=== PATIENT | female | born 1990 | race Two or more races ===

== ENCOUNTER 2020-10-16 08:03 | Outpatient (REF) | payer OTHER, SELFPAY | END 2020-10-16 08:04 | disposition home or self-care (01) | LOC: HO.LAB 08:03 | PROVIDERS: Visit Provider Internal Medicine | DX: Z20.822 Contact with and (suspected) exposure to COVID-19 (principal) | CPT/HCPCS: 36415; C9803; U0003 ==

== ENCOUNTER 2021-09-17 02:40 | Emergency (ER) | payer OTHER, SELFPAY ==
--- NOTE | 2021-09-17 | ECG_ITS ---
Test Reason : SOB/CHEST PAIN Blood Pressure : / mmHG Vent. Rate : 074 BPM Atrial Rate : 074 BPM P-R Int : 156 ms QRS Dur : 082 ms QT Int : 384 ms P-R-T Axes : 066 068 030 degrees QTc Int : 426 ms Normal sinus rhythm with sinus arrhythmia Normal ECG When compared with ECG of 29-JUL-2016 04:22, No significant change was found Referred By: Generic ED Physician Electronically Signed By:Casey Gross
--- NOTE | ~2021-09-17 | XR_ITS ---
EXAMINATION: XR CHEST CLINICAL INFORMATION: Shortness of breath COMPARISON: None TECHNIQUE: Frontal view of the chest was obtained. FINDINGS: No significant abnormality is noted involving the heart, lungs, mediastinum, bony thorax or soft tissues. XR/XR chest 1V IMPRESSION: Unremarkable examination.
[2021-09-17 02:55] VITALS: BP 122/70; PULSE 78; RESP 20; TEMP 36.4; O2SAT 100; BMI 29.9
[2021-09-17 03:12] LABS: COVID-19 Test Negative (Negative)
--- NOTE | 2021-09-17 03:44 | ED_ITS ---
HPI - URI/Sore Throat General Chief Complaint: Upper Respiratory Symptoms Stated Complaint: sob, chest pain Time Seen by Provider: 09/17/21 03:35 Source: patient Mode of arrival: ambulatory Limitations: no limitations History of Present Illness HPI Narrative: Patient comes to the emergency room complaining of chronic stuffy nose/congestion. Patient states that when she breathes, her lungs burn. Patient does not have any sharp pains, no chest pain. Patient states that she has tried for several months Sudafed, Flonase, multiple decongestants, allergy shots. Related Data Allergies Allergy/AdvReac Type Severity Reaction Status Date / Time penicillin V Allergy Unknown hives Verified 10/29/18 00:00 seasonal allergies Allergy Unknown Unknown Uncoded 09/17/21 02:52 Review of Systems Review of Systems: Constitutional : No Weight loss, No Fever, No Chills, No Night Sweats, No Fatigue, No Malaise ENT/Mouth : No Hearing loss, No Ear Pain, complaining of nasal congestion, sinus pressure, hoarse voice for several months Eyes: No Eye Pain, No Swelling, No Redness, No Foreign Body, No Discharge, No Vision Changes Cardiovascular : No Chest Pain, No SOB, No Dyspnea on Exertion, No Orthopnea, No Edema, No Palpitations Respiratory : No Cough, No Sputum, No Wheezing, No Smoke Exposure, No Dyspnea Gastrointestinal : No Nausea, No Vomiting, No Diarrhea, No Constipation, No abdominal Pain, No Hematochezia, No Melena Genitourinary : no irregular bleeding, No Dysuria, No Urinary Frequency, No Hematuria, No Urinary Incontinence, No Urgency, No Flank Pain, No Urinary Flow Changes, No Hesitancy Musculoskeletal : No joint pain, No Myalgias, No Joint Swelling Skin : No Skin Lesions, No rash Neuro : No Weakness, No Numbness, No Paresthesias, No Loss of Consciousness, No Dizziness, No Headache Psych : No Anxiety/Panic, No Depression, No SI/HI/AH/VH, No Social Issues, Heme/Lymph: No Bruising, No Bleeding,No Lymphadenopathy Endocrine : No Polyuria, No Polydipsia, No Temperature Intolerance [facility] Social History Social History Advance Directives: No Advance Directives Information Provided: Yes Patient : No Physical Exam Vital Signs: Vital Signs: Last Vital Signs Temp 97.6 F 09/17/21 02:55 Pulse 78 09/17/21 02:55 Resp 20 09/17/21 02:55 BP 122/70 09/17/21 02:55 Pulse Ox 100 09/17/21 02:55 BMI result Body Mass Index 29.9 Const: Other: Appearance: Alert. Oriented X3. No acute distress. Eyes: Pupils equal, round and reactive to light. ENT: Pharynx normal. Neck: Normal inspection. Neck supple. No lymph nodes noted. No crepitus CVS: Normal heart rate and rhythm. Pulses normal. Normal S1 and S2 Respiratory: No respiratory distress. Breath sounds normal. No Wheezing. No rales Abdomen: Soft and nontender. No rigidity. No distention. good BS x4 Skin: Skin warm and dry. Normal skin color. Normal skin turgor. Extremities: No lower extremity edema. No lower extremity edema. No Lacerations. No Rash Neuro: Oriented X 3. No motor deficit. No sensory deficit. Moving all extermities. No slurred speech. Course Course Course Narrative: I discussed the physical exam with the patient, patient does have congestion, mild sinus pressure. Lungs sound clear. X-ray is negative and COVID test is negative. Patient likely has an acute viral infection on top of her chronic symptoms. At this time, antibiotic not indicated. MDM - URI/Sore Throat Lab Data Labs: Lab Results 09/17/21 Range/Units 02:53 COVID-19 ([facility]) Negative (Negative) COVID-19 Clin Com See Note Imaging Data Chest x-ray: Radiologist's impression: COMPARISON: None TECHNIQUE: Frontal view of the chest was obtained. FINDINGS: No significant abnormality is noted involving the heart, lungs, mediastinum, bony thorax or soft tissues. XR/XR chest 1V IMPRESSION: Unremarkable examination. Discharge Plan Discharge Clinical Impression: Upper respiratory infection Patient Disposition: Home, Self-Care Instructions: Viral Syndrome (ED), Upper Respiratory Infection (ED) Additional Instructions: Please follow-up with your primary care physician tomorrow. If you have any worsening or new symptoms, please return to the emergency room or call 911 Stand Alone Forms: Work/School Release
== END 2021-09-17 04:04 | disposition home or self-care (01) ==
PROVIDERS: Emergency Provider Emergency Medicine; PCP Internal Medicine
DX: J06.9 Acute upper respiratory infection, unspecified (principal); Z20.822 Contact with and (suspected) exposure to COVID-19
CPT/HCPCS: 36415; 71045; 87635; 93005; 99283

== ENCOUNTER 2022-04-23 09:35 | Outpatient (REF) | payer OTHER, SELFPAY ==
[2022-04-23 10:09] LABS: Basophils Percent Auto 0.6 % (0-2); Eosinophils Absolute Auto 0.2 X10*3/uL (0.0-0.4); Eosinophils Percent Auto 4.4 % (0-4); Hematocrit 40.3 % (37.0-47.0); Imm Gran Abs Auto 0.02 X10*3/uL (0.00-0.03); Imm Gran Pct Auto 0.4 % (0.0-0.4); Lymphocytes Absolute Auto 1.3 X10*3/uL (1.2-4.9); Lymphocytes Percent Auto 26.7 % (20-40); MANUAL DIFF FLAG SCAN; Mean Corpuscular HGB Conc 32.3 g/dl (31.0-35.0); Mean Corpuscular Hemoglobin 28.4 pg (27.0-33.0); Mean Corpuscular Volume 88.2 fL (80.0-98.0); Mean Platelet Volume 9.8 fL (9.4-12.3); Monocytes Absolute Auto 0.3 X10*3/uL (0.1-1.2); Monocytes Percent Auto 5.2 % (2-11); Neutrophils Absolute Auto 3.2 x10*3/uL (2.0-8.3); Neutrophils Percent Auto 62.7 % (45-73); Platelet Count 263 X10*3/uL (160-400); Red Blood Count 4.57 X10*6/uL (4.20-5.50); Red Cell Distribution Width 14.1 % (11.0-16.0); SCAN SMEAR FLAG 1
[2022-04-23 10:26] LABS: SLIDE REVIEW VERIFIED
[2022-04-23 10:46] LABS: Alanine Aminotransferase 15 U/L (0-31); Albumin Level 4.6 g/dL (3.5-5.0); Alkaline Phosphatase 52 U/L (39-117); Anion Gap 10 (12-20); Aspartate Amino Transferase 14 U/L (5-31); Bilirubin Total 0.4 mg/dL (0.0-1.0); Blood Urea Nitrogen 12 mg/dL (9-16); Calcium 9.2 mg/dL (8.4-10.2); Carbon Dioxide 26 mmol/L (22-29); Chloride 107 mmol/L (96-108); Cholesterol 254 mg/dL; Estimated Glomerular Filt Rate > 60; Glucose Random 86 mg/dL (60-115); HDL Cholesterol 73 mg/dL; LDL Cholesterol Calculated 168 mg/dl; Potassium 4.4 mmol/L (3.3-5.1); Rheumatoid Factor < 15.0 IU/mL (<15.0); Sodium 139 mmol/L (135-145); Total Protein 7.2 g/dL (6.5-8.0); Triglycerides 65 mg/dL
[2022-04-23 10:55] LABS: Erythrocyte Sedimentation Rate 4 MM/HR (0-20)
[2022-04-23 11:07] LABS: Thyroid Stimulating Hormone 0.96 uIU/mL (0.32-4.0)
[2022-04-25 18:12] LABS: Lyme Abs Screen <0.90 index
[2022-04-25 19:02] LABS: Cyclic Citrullinated Peptide <16 UNITS
[2022-04-26 14:22] LABS: Anti Nuclear Antibody Screen NEGATIVE (NEGATIVE)
== END 2022-04-23 09:36 | disposition home or self-care (01) ==
LOC: HO.LAB 09:35
PROVIDERS: PCP Internal Medicine; Visit Provider Internal Medicine
DX: Z00.00 Encounter for general adult medical examination without abnormal findings (principal); Z13.31 Encounter for screening for depression; M13.0 Polyarthritis, unspecified; M65.4 Radial styloid tenosynovitis [de Quervain]
CPT/HCPCS: 36415; 80053; 80061; 84443; 85025; 85652; 86038; 86039; 86200; 86431; 86617; 86618

== ENCOUNTER → 2022-07-16 14:52 | Outpatient (BNVA) | payer OTHER, SELFPAY | PROVIDERS: PCP Internal Medicine; Visit Provider Orthopaedic Surgery | DX: M65.4 Radial styloid tenosynovitis [de Quervain] (principal) | CPT/HCPCS: J1100 ==

== ENCOUNTER 2022-08-20 16:26 | Emergency (ER) | payer OTHER, SELFPAY ==
[2022-08-20 16:30] VITALS: RESP 24; BMI 30.9
[2022-08-20 16:35] VITALS: BP 92/57; PULSE 75; RESP 22; TEMP 35.8; O2SAT 100
--- NOTE | 2022-08-20 16:37 | ED_ITS ---
HPI - Extremity Injury (Upper) General Chief Complaint: Skin/Abscess/Foreign Body Stated Complaint: Finger lac Time Seen by Provider: 08/20/22 16:34 Source: patient Mode of arrival: ambulatory Limitations: no limitations History of Present Illness HPI narrative: 31 yo female right hand dominant here with laceration to left hand from cutting an advocado with a knife just [employer]. Tetanus status unknown. No numbness,tingling, weakness of the extremity. Patient feeling lightheaded and nausea/vomiting since injury. Related Data Home Medications Medication Instructions Recorded Confirmed triamcinolone acetonide 0.5 % 1 appl topical BID 05/28/22 topical cream ibuprofen 800 mg tablet 800 mg PO TID PRN pain 05/31/22 05/31/22 montelukast 10 mg tablet 10 mg PO DAILY 05/31/22 azelastine 137 mcg (0.1 %) nasal intranasal 07/16/22 spray aerosol Previous Rx's Medication Instructions Recorded ibuprofen 800 mg tablet 800 mg PO Q8H PRN pain #30 tabs 08/20/22 Allergies Allergy/AdvReac Type Severity Reaction Status Date / Time penicillin V Allergy Unknown hives Verified 07/16/22 15:41 amitriptyline AdvReac Intermediate Dizziness Unverified 07/16/22 15:41 amoxicillin AdvReac Intermediate Hives Unverified 07/16/22 15:41 topiramate [From Topamax] AdvReac Intermediate Confusion Unverified 07/16/22 15:41 seasonal allergies Allergy Unknown Unknown Uncoded 07/16/22 15:41 Review of Systems Review of Systems: Yes all other systems are reviewed and are negative Constitutional: Constitutional: Reports no additional constitutional complaints, Denies body ache(s), Denies chills, Denies fever(s), Denies headache(s) and Denies weakness Eyes: Eyes: Reports no additional eye complaints and Denies change in vision ENT: Reports system reviewed and no additional complaints, except as documented, Denies dizziness, Denies headache(s), Denies nasal congestion, Denies nasal discharge and Denies neck pain Cardiovascular: Cardiovascular: Reports no additional cardiovascular complaints, Denies chest pain, Denies leg edema and Denies dyspnea Respiratory: Respiratory: Reports no additional respiratory complaints, Denies cough and Denies dyspnea Gastrointestinal: Gastrointestinal: Reports no additional gastrointestinal complaints, Denies abdominal pain, Denies diarrhea, Denies nausea and Denies vomiting Genitourinary: Genitourinary: Reports no additional female genitourinary complaints and Denies urinary incontinence Musculoskeletal: Musculoskeletal: Reports no additional musculoskeletal complaints, Denies back pain, Denies arthralgias, Denies joint swelling, Denies neck pain, Denies numbness and Denies tingling Integumentary/Breasts: Skin/Breast: Reports system reviewed and no additional complaints, except as docu and Denies rash Comments: +laceration Neurologic: Reports system reviewed and no additional complaints, except as documented, Denies Abnormal speech present, Denies dizziness, Denies headache(s), Denies numbness, Denies tingling and Denies weakness PMFSH Past Medical History Attestation statement: The following information was validated with the patient. 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 Physical Exam Vital Signs: Vital Signs: Last Vital Signs Temp 96.5 F L 08/20/22 16:35 Pulse 75 08/20/22 16:35 Resp 22 H 08/20/22 16:35 BP 92/57 L 08/20/22 16:35 Pulse Ox 100 08/20/22 16:35 O2 Del Method 08/20/22 16:35 BMI result Body Mass Index 30.9 Const: General: cooperative, healthy appearing, comfortable and no acute distress Orientation/consciousness: patient oriented x3 Limitations: no limitations HEENT: Head: Yes normal to inspection Ears: hearing grossly normal bilaterally General nose exam: Normal external nose present Face and sinus: Yes normal facial exam Mouth: Normal oral and palatal mucosa present Throat: Yes posterior oropharynx normal Eyes: General: appearance normal, both eyes and all related structures Pupils: Equal, round and reactive pupils present Neck: Neck: Yes normal visual inspection Chest: Chest palpation & inspection: normal inspection of the chest Resp: Effort & Inspection: normal respiratory effort Auscultation: clear to auscultation bilaterally Cardio: Rate: regular rate Rhythm: regular rhythm Peripheral pulses: Peripheral pulses 2+ throughout GI: Inspection: Yes normal to inspection Palpation (GI): Soft to palpation and nontender Auscultation: normal bowel sounds Back/Spine/Pelvis: Thoracic/Lumbar Spine: thoracic and lumbar spine normal to inspection Skin: General skin exam: no rashes or lesions noted Neuro: General: patient oriented x3, no focal motor deficits and normal sensation to monofilament Cranial nerves: Yes Equal, round and reactive pupils present Cognition (Neuro): normal cognition Speech: No Abnormal speech present Gait exam (Neuro): Normal gait present Motor exam (neuro): 5/5 motor strength present throughout Extrem: General: Yes normal to inspection Hand/finger images: 1. 3cm lac FROM of the 4th finger with no difficulty with flexion/extension Sensation distally normal.. Normal cap refill Course Course Course Narrative: See procedure note for wound repair This was performed with Maite BARAHONA student from [facility]. Medications Administered Discontinued Medications Generic Name Dose Route Start Last Admin Trade Name Freq PRN Reason Stop Dose Admin Diphtheria/Tetanus/Acell Pertussis 0.5 ml 08/20/22 16:43 08/20/22 17:54 Diphth,Pertus(Acell),Tet Adult 0.5 Ml Syringe IM 08/20/22 16:44 0.5 ml .ONCE ONE Administration Lidocaine HCl 2 ml 08/20/22 16:42 08/20/22 17:54 Lidocaine Hcl 1 % Mpf 2 Ml Vial INFILTRATI 08/20/22 16:43 2 ml ONCE ONE Administration Lidocaine HCl 2 ml 08/20/22 16:42 08/20/22 17:53 Lidocaine Hcl 1 % Mpf 2 Ml Vial INFILTRATI 08/20/22 16:43 2 ml ONCE ONE Administration Lidocaine HCl 2 ml 08/20/22 17:10 08/20/22 17:53 Lidocaine Hcl 1 % Mpf 2 Ml Vial INFILTRATI 08/20/22 17:11 2 ml ONCE ONE Administration Ondansetron HCl 4 mg 08/20/22 16:43 08/20/22 17:53 Ondansetron Odt 4 Mg Tab.Raghavendra HUA 08/20/22 16:44 4 mg ONCE ONE Administration MDM - Extremity Injury (Upper) MDM Narrative Medical decision making narrative: 31 yo female right hand dominant here with laceration to left hand. See procedure note for wound repair Tetanus will be updated No evidence of bony abnormality on exam. No evidence of tendon injury. Reviewed suture care for home. Reviewed worrisome signs and symptoms of when to return to the emergency room. Comfortable discharge home. Medical Records Attestation: I reviewed the patient's medical records. Lab Data Attestation: I reviewed the patient's lab results. Procedures Laceration Laceration 1: Site: hand Side (If applicable): left (4th digit ) Size (cm): 3 Description: linear Depth: simple, single layer Local Anesthetic: lidocaine 1% Amount of anesthesia used (mL): 4 Pre-repair: wound explored, irrigated extensively and deep structures intact Skin layer closed with: vicryl Size (cm): 5-0 Number of sutures: 5 Technique: simple, interrupted Discharge Plan Discharge Clinical Impression: Laceration Patient Disposition: Home, Self-Care Instructions: Finger Laceration (ED) Additional Instructions: Keep the bandage in place today Remove tomorrow and wash with soap and water daily No soaking in water Motrin and/or tylenol for pain as needed Return for signs of infection (fever, drainage, redness, odor) Sutures should be removed in 7-10 days Prescriptions: New ibuprofen 800 mg tablet 800 mg PO Q8H PRN (Reason: pain) Qty: 30 0RF No Action azelastine 137 mcg (0.1 %) aerosol,spray intranasal triamcinolone acetonide 0.5 % cream 1 appl topical BID montelukast 10 mg tablet 10 mg PO DAILY ibuprofen 800 mg tablet 800 mg PO TID PRN (Reason: pain) Referrals: Ruth Ann Ramirez MD [Primary Care Provider] - 1 week Stand Alone Forms: Work/School Release Interventions: ED Discharge Assessment Last Done: 08/20/22 18:00 Discharge Date/Time: 08/20/22 18:01
[2022-08-20] MEDS: Lidocaine HCl 1 % MPF 2 ML VIAL INFILTRATI ×3 (17:53→17:54)
[2022-08-20] MEDS: Ondansetron ODT 4 MG TAB.RAPDIS TRANSLINGU (17:53)
[2022-08-20] MEDS: Diphth,Pertus(ACell),Tet Adult 0.5 ML SYRINGE IM (17:54)
== END 2022-08-20 18:01 | disposition home or self-care (01) ==
PROVIDERS: Emergency Provider Emergency Medicine; PCP Internal Medicine
DX: S61.412A Laceration without foreign body of left hand, initial encounter (principal); W26.0XXA Contact with knife, initial encounter; Y93.G1 Activity, food preparation and clean up; Y92.010 Kitchen of single-family (private) house as the place of occurrence of the external cause; Y99.9 Unspecified external cause status
CPT/HCPCS: 12042; 90471; 90715; 99282; 99284

== ENCOUNTER 2022-11-07 15:30 | Outpatient (RCR) | payer OTHER, SELFPAY ==
--- NOTE | 2022-10-02 16:09 | MHC.OT.EP ---
[address] [phone] Occupational Therapy Plan of Care Date of Evaluation: 10/02/22 Diagnosis: Left radial styolid tenosynovitis Assessment: Pt. is a 31 y/o female referred to OT for symptom management of left radial styloid tenosynovitis. Pt. has received 2 cortisone injections with minimal effect and is hoping to avoid surgery with conservative measures. Pt. reports pain and difficulty with typing at work, lifting and carrying groceries, and demonstrates some stiffness in left wrist and thumb. [employer] and pinch strength on the left is impaired. A 59.1% limitation is reported per the Quick DASH assessment. Pt. has been wearing thumb spica splint which is helping. Pt. would benefit from skilled OT services to address noted barriers and assist in return to PLOF. Frequency and Duration: The patient will be seen 2x/wk for 6 weeks Short Term Goals: Decrease left wrist/thumb pain to <4/10 IND with activity modification for ADL's and work duties IND with HEP Improve L gross grasp by 5# [facility] Goals: Pain free with BADL's/IADL's IND with progression of HEP Improve L gross grasp by 10# Quick DASH <25% Treatment Plan: Therapeutic Exercise Therapeutic Activity Home Exercise Program Splinting Patient Education ADL Training Iontophoresis Paraffin Fluidotherapy MHP Soft Tissue Mobilization Kinesiotaping Electronically Signed By: Cassi Rea MS OTR/L Please Sign and return to therapist. Thank you once again for your referral.
== END 2023-03-04 09:21 | disposition home or self-care (01) ==
LOC: HO.OT 15:30
PROVIDERS: Visit Provider Orthopaedic Surgery
DX: M25.532 Pain in left wrist (principal); M65.4 Radial styloid tenosynovitis [de Quervain]
CPT/HCPCS: 29125; 97033; 97035; 97110; 97140; 97165; 97760

== ENCOUNTER → 2022-11-26 15:38 | Outpatient (BNVA) | payer OTHER, SELFPAY | PROVIDERS: PCP Internal Medicine; Visit Provider Orthopaedic Surgery | DX: Z13.89 Encounter for screening for other disorder (principal) ==

== ENCOUNTER 2024-04-28 15:24 | Outpatient (AMB) | payer BC, SELFPAY ==
--- NOTE | 2024-04-28 15:25 | A.OFFVIS_ITS ---
Vital Signs 04/28/24 15:39 Height 5 ft 5 in Weight 194 lb 0.108 oz BMI 32.3 BP 108/68 Blood Pressure Location Rt brachial Position Sitting Pulse 70 Pulse Source Pulse Oximeter Pulse Oximetry (%) 99 Oxygen Delivery Method Room Air Intake Visit Reasons: abdominal pain, nausea Intake Note: Tessie presents in office today for a scheduled initial assessment visit. CC; Pt was referred for abdominal pain and nausea. Pt reports having intermittent abdominal pain which is located in B/L UQ. Pt states that this pain is intermittent throughout the day, however; it tends to be worse in the mornings and evenings. Pt also reports that the pain seems to be worse after any type of intake. Pt reports also experiencing constipation and GERD sx in association with the nausea. No vomiting reported. Pt reports typically having normal BMs, approximately once per day. [employer] Required: No Allergies penicillin V Allergy (Unknown, Verified 04/28/24 15:26) hives amitriptyline Adverse Reaction (Intermediate, Verified 04/28/24 15:26) Dizziness amoxicillin Adverse Reaction (Intermediate, Verified 04/28/24 15:26) Hives topiramate [From Topamax] Adverse Reaction (Intermediate, Verified 04/28/24 15:26) Confusion seasonal allergies Allergy (Unknown, Uncoded 09/10/22 16:07) Unknown HPI HPI abdominal pain, nausea: Details: 33-year-old female with no significant medical history is here today for initial consultation. Patient was sent to us by her PCP. Patient reports that in the past few months she has been having trouble after meals. Patient reports that no matter what she eats she will have epigastric pain. Patient also reports full. Usually patient reports that she moves her bowels daily, however lately patient has been feeling like she does not empty her bowels completely. Patient reports that her symptoms are worse in the evening as well as in the morning. Patient denies vomiting. Reports occasional dyspepsia without dysphagia or odynophagia. Patient denies any melena, hematochezia. 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 Review of Systems Const Denies weight gain and Denies weight loss ENT Reports no additional complaints, Denies dysphagia and Denies odynophagia Card Reports no additional complaints Resp Reports no additional complaints GI Reports abdominal pain, Denies belching, Denies melena, Reports bloating, Denies change in bowel habits, Reports constipation, Reports GI cramping, Denies dysphagia, Denies excessive flatus, Reports dyspepsia, Reports heartburn, Denies diarrhea, Denies loose stools, Reports nausea, Denies odynophagia and Denies vomiting Reports no additional complaints Musc Reports no additional complaints Neuro Reports no additional complaints Psych Reports no additional complaints Endo Reports no additional complaints Physical Exam Vital Signs: Last Vital Signs Pulse 70 04/28/24 15:39 BP 108/68 04/28/24 15:39 Pulse Ox 99 04/28/24 15:39 Oxygen Delivery Method Room Air 04/28/24 15:39 BMI result Body Mass Index 32.3 Const General: healthy appearing and no acute distress Nutritional Appearance: obese Orientation/consciousness: patient oriented x3 Resp Effort & Inspection: normal respiratory effort, able to speak in complete sentences, no tracheal deviation and symmetric chest movement Auscultation: clear to auscultation bilaterally Cardio Rate: regular rate GI Inspection: Yes normal to inspection, No distended and Yes obesity Palpation (GI): Soft to palpation, not firm, nontender and No hepatosplenomegaly present Auscultation: normal bowel sounds General: Yes no CVA tenderness Back/Spine/Pelvis Back: no CVA tenderness Skin General skin exam: elasticity normal, turgor normal and dry skin Neuro General: patient oriented x3 Psych Appearance: grossly normal Mental Status: mental status grossly normal Assessment & Plan Assessment & Plan (1) GERD (gastroesophageal reflux disease): Code(s): K21.9 - Gastro-esophageal reflux disease without esophagitis Qualifiers: Esophagitis presence: esophagitis presence not specified Qualified Code(s): K21.9 - Gastro-esophageal reflux disease without esophagitis (2) Constipation: Code(s): K59.00 - Constipation, unspecified Qualifiers: Constipation type: slow transit constipation Qualified Code(s): K59.01 - Slow transit constipation (3) Postprandial epigastric pain: Code(s): R10.13 - Epigastric pain (4) Postprandial abdominal bloating: Code(s): R14.0 - Abdominal distension (gaseous) Plan Discussed with patient the importance of avoiding dietary triggers and late night snacking. Staying upright for minimum 3 hours after meals discussed with patient. Will check for H pylori, rule out celiac. Check vitamin B12, folate vitamin-D level. Patient will start taking omeprazole in the morning daily half an hour before breakfast. Patient will take Colace to help her move her bowels better. I will see patient in 4 months if she continues to have symptoms will send her for upper endoscopy. Patient is agreeable to plan of care and verbalizes understanding of instructions. She was given the opportunity to ask questions and all questions answered. Thank you for allowing me to participate in her care Orders: Orders H Pylori Breath Test 04/30/24 K21.9 - Gastro-esophageal reflux disease without esophagitis Vitamin B12 and Folate 04/29/24 R19.7 - Diarrhea, unspecified Transglutaminase Ab IgG 04/29/24 R10.9 - Unspecified abdominal pain Transglutaminase IgA 04/29/24 R10.9 - Unspecified abdominal pain Vitamin D 25-OH (D2 and D3) 04/29/24 E55.9 - Vitamin D deficiency, unspecified Medications: New docusate sodium 100 mg PO BEDTIME 90 caps 3RF K59.00 - Constipation, unspecified omeprazole 20 mg PO DAILY 30 caps 3RF K21.9 - Gastro-esophageal reflux disease without esophagitis Coding Level of Care Code New Pt Level 4 (55409) Diagnoses Gastroesophageal reflux disease, unspecified whether esophagitis present K21.9 Esophagitis presence: esophagitis presence not specified Slow transit constipation K59.01 Constipation type: slow transit constipation Postprandial epigastric pain R10.13 Postprandial abdominal bloating R14.0 Time Spent (min) 45 Comment 30 minutes spent with patient and additional 15 minutes spent reviewing her records
[2024-04-28 15:39] VITALS: BP 108/68; PULSE 70; O2SAT 99; BMI 32.3
== END 2024-04-28 16:18 | disposition home or self-care (01) ==
PROVIDERS: PCP Internal Medicine; Visit Provider Nurse Practitioner Family
DX: K21.9 Gastro-esophageal reflux disease without esophagitis (principal); K59.01 Slow transit constipation; R10.13 Epigastric pain; R14.0 Abdominal distension (gaseous)
CPT/HCPCS: 99204

== ENCOUNTER → 2024-04-28 15:24 | Outpatient (BNVA) | payer BC, SELFPAY | PROVIDERS: PCP Internal Medicine; Visit Provider Nurse Practitioner Family ==

== ENCOUNTER 2024-04-28 15:51 | Outpatient (REF) | payer BC, SELFPAY | END 2024-04-28 15:52 | disposition home or self-care (01) | LOC: HO.LNP 15:51 | PROVIDERS: Visit Provider Nurse Practitioner Family | DX: Z13.89 Encounter for screening for other disorder (principal) | CPT/HCPCS: 83013 ==

== ENCOUNTER 2024-04-29 11:01 | Outpatient (REF) | payer BC, SELFPAY ==
[2024-04-29 14:07] LABS: Folate 14.5 ng/mL (> or = 4.0); Vitamin B12 404 pg/mL (200-900)
[2024-05-03 15:47] LABS: Vitamin D 25-OH, D2 <4 ng/mL; Vitamin D 25-OH, D3 27 ng/mL; Vitamin D 25-OH, Total 27 ng/mL (30-100)
[2024-05-05 22:57] LABS: Transglutaminase Ab IgG <1.0 U/mL; Transglutaminase IgA <1.0 U/mL
== END 2024-04-29 11:02 | disposition home or self-care (01) ==
LOC: HO.LAB 11:01
PROVIDERS: PCP Internal Medicine; Visit Provider Nurse Practitioner Family
DX: R10.9 Unspecified abdominal pain (principal); E55.9 Vitamin D deficiency, unspecified; R19.7 Diarrhea, unspecified
CPT/HCPCS: 36415; 82306; 82607; 82746; 86364

== ENCOUNTER 2024-07-13 16:04 | Outpatient (REF) | payer BC, SELFPAY ==
[2024-07-13 16:19] LABS: MANUAL DIFF FLAG NO
[2024-07-13 16:41] LABS: Basophils Percent Auto 0.6 % (0-2); Eosinophils Absolute Auto 0.3 X10*3/uL (0.0-0.4); Eosinophils Percent Auto 3.8 % (0-4); Hematocrit 40.3 % (37.0-47.0); Hemoglobin 12.9 g/dl (12.0-16.0); Imm Gran Abs Auto 0.02 X10*3/uL (0.00-0.03); Imm Gran Pct Auto 0.3 % (0.0-0.4); Lymphocytes Percent Auto 28.1 % (20-40); Mean Corpuscular Hemoglobin 28.7 pg (27.0-33.0); Mean Corpuscular Volume 89.6 fL (80.0-98.0); Mean Platelet Volume 9.9 fL (9.4-12.3); Monocytes Absolute Auto 0.6 X10*3/uL (0.1-1.2); Monocytes Percent Auto 8.3 % (2-11); Neutrophils Absolute Auto 4.2 x10*3/uL (2.0-8.3); Neutrophils Percent Auto 58.9 % (45-73); Platelet Count 257 X10*3/uL (160-400); Red Cell Distribution Width 13.9 % (11.0-16.0); White Blood Count 7.1 X10*3/uL (4.8-10.8)
[2024-07-13 17:14] LABS: Alanine Aminotransferase 17 U/L (0-31); Albumin Level 4.8 g/dL (3.5-5.0); Alkaline Phosphatase 62 U/L (39-117); Anion Gap 13 (12-20); Aspartate Amino Transferase 17 U/L (5-31); Bilirubin Total 0.3 mg/dL (0.0-1.0); Blood Urea Nitrogen 11 mg/dL (9-16); Calcium 9.7 mg/dL (8.4-10.2); Carbon Dioxide 25 mmol/L (22-29); Chloride 106 mmol/L (96-108); Cholesterol 242 mg/dL (<200); Estimated Glomerular Filt Rate > 60; Glucose Random 78 mg/dL (60-115); HDL Cholesterol 77 mg/dL (>40); LDL Cholesterol Calculated 144 mg/dL (<100); Potassium 3.8 mmol/L (3.3-5.1); Sodium 140 mmol/L (135-145); Total Protein 7.8 g/dL (6.5-8.0); Triglycerides 106 mg/dL (<150)
== END 2024-07-13 16:05 | disposition home or self-care (01) ==
LOC: HO.LAB 16:04
PROVIDERS: PCP Internal Medicine; Visit Provider Internal Medicine
DX: Z00.00 Encounter for general adult medical examination without abnormal findings (principal); E78.00 Pure hypercholesterolemia, unspecified; Z13.31 Encounter for screening for depression
CPT/HCPCS: 36415; 80053; 80061; 85025

== ENCOUNTER 2024-09-13 15:56 | Outpatient (AMB) | payer BC, SELFPAY ==
[2024-09-13 15:58] VITALS: BP 104/72; PULSE 68; O2SAT 99; BMI 32.6
--- NOTE | 2024-09-13 15:58 | A.OFFVIS_ITS ---
Vital Signs 09/13/24 15:58 Height 5 ft 5 in Weight 195 lb 12.328 oz BMI 32.6 BP 104/72 Blood Pressure Location Rt brachial Position Sitting Pulse 68 Pulse Source Pulse Oximeter Pulse Oximetry (%) 99 Oxygen Delivery Method Room Air Intake Visit Reasons: 5 mos FUV. Intake Note: PRESCRIPTIONS LAST GENERATED docusate sodium 100 mg capsule?100 mg PO BEDTIME 90 caps 3RF Khanh,Sallie D 04/28/24 15:56 (Transmitted) omeprazole 20 mg capsule,delayed release?20 mg PO DAILY 30 caps 3RF Khanh,Sallie D 04/28/24 15:56 (Transmitted) Pt has not taken docusate on account of not feeling that they needed it. Pt is taking omeprazole with noticeable improvement. Relevant Flags or Indicators ? Requires Psychological Tests Sales Agent? Braydon Tessie presents in office today for a scheduled 5 mos FUV. CC; No recent diagnostics. Labs and meds ordered. Relevant GI Sx changes since last visit? None. ? Hx of any recent surgeries? None Psychological Tests Sales Agent Required: No Allergies penicillin V Allergy (Unknown, Verified 09/13/24 15:59) hives amitriptyline Adverse Reaction (Intermediate, Verified 09/13/24 15:59) Dizziness amoxicillin Adverse Reaction (Intermediate, Verified 09/13/24 15:59) Hives topiramate [From Topamax] Adverse Reaction (Intermediate, Verified 09/13/24 15:59) Confusion seasonal allergies Allergy (Unknown, Uncoded 09/10/22 16:07) Unknown HPI HPI 5 mos FUV.: Details: LAST VISIT: GERD (gastroesophageal reflux disease) Constipation Postprandial epigastric pain Postprandial abdominal bloating Plan Discussed with patient the importance of avoiding dietary triggers and late night snacking. Staying upright for minimum 3 hours after meals discussed with patient. Will check for H pylori, rule out celiac. Check vitamin B12, folate vitamin-D level. Patient will start taking omeprazole in the morning daily half an hour before breakfast. Patient will take Colace to help her move her bowels better. I will see patient in 4 months if she continues to have symptoms will send her for upper endoscopy. Patient is agreeable to plan of care and verbalizes understanding of instructions. She was given the opportunity to ask questions and all questions answered. ? Thank you for allowing me to participate in her care Orders Orders H Pylori Breath Test 04/30/24 K21.9 Vitamin B12 and Folate 04/29/24 R19.7 Transglutaminase Ab IgG 04/29/24 R10.9 Transglutaminase IgA 04/29/24 R10.9 Vitamin D 25-OH (D2 and D3) 04/29/24 E55.9 Medications New docusate sodium 100 mg PO BEDTIME 90 caps 3RF K59.00 omeprazole 20 mg PO DAILY 30 caps 3RF K21.9K LAST VISIT Patient is here today for follow-up. Patient reports that she has been feeling well since she started omeprazole. Patient does not take it evertday, reports about 2 to 3 times a week when she eats something that she knows will aggravate her stomach. Patient denies any dyspepsia, dysphagia or odynophagia. Reports t hat she is moving her bowels well without any issues. Results discussed with patient. Patient would like to lose weight, however sometimes she knows that she is snacking or eating something that she should. Has not tried any diet yet. 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 Review of Systems Const Denies weight gain and Denies weight loss ENT Reports no additional complaints, Denies dysphagia and Denies odynophagia Card Reports no additional complaints Resp Reports no additional complaints GI Denies abdominal pain, Denies belching, Denies melena, Denies bloating, Denies change in bowel habits, Denies dysphagia, Denies excessive flatus, Denies dyspepsia, Denies heartburn, Denies diarrhea, Denies loose stools, Denies nausea, Denies odynophagia and Denies vomiting Musc Reports no additional complaints Neuro Reports no additional complaints Psych Reports no additional complaints Endo Reports no additional complaints Physical Exam Vital Signs: Last Vital Signs Pulse 68 09/13/24 15:58 BP 104/72 09/13/24 15:58 Pulse Ox 99 09/13/24 15:58 Oxygen Delivery Method Room Air 09/13/24 15:58 BMI result Body Mass Index 32.6 Const General: healthy appearing and no acute distress Nutritional Appearance: obese Orientation/consciousness: patient oriented x3 Resp Effort & Inspection: normal respiratory effort, able to speak in complete sentences, no tracheal deviation and symmetric chest movement Auscultation: clear to auscultation bilaterally Cardio Rate: regular rate GI Inspection: Yes normal to inspection, No distended and Yes obesity Palpation (GI): Soft to palpation, not firm, nontender and No hepatosplenomegaly present Auscultation: normal bowel sounds General: Yes no CVA tenderness Back/Spine/Pelvis Back: no CVA tenderness Skin General skin exam: elasticity normal, turgor normal and dry skin Neuro General: patient oriented x3 Psych Appearance: grossly normal Mental Status: mental status grossly normal Results Reviewed Results Reviewed: Laboratory Tests 04/29/24 11:28 Vitamin B12 404 25-OH Vitamin D Total 27 L 25-Hydroxy Vitamin D3 27 Folate 14.5 Tiss Transglutamin IgG <1.0 Tiss Transglutamin IgA <1.0 Assessment & Plan Assessment & Plan (1) GERD (gastroesophageal reflux disease): Code(s): K21.9 - Gastro-esophageal reflux disease without esophagitis Qualifiers: Esophagitis presence: esophagitis presence not specified Qualified Code(s): K21.9 - Gastro-esophageal reflux disease without esophagitis (2) Postprandial epigastric pain: Code(s): R10.13 - Epigastric pain (3) Postprandial abdominal bloating: Code(s): R14.0 - Abdominal distension (gaseous) Plan Patient reports to be feeling much better. Patient will try to limit some of the food that she eats. Avoid dietary triggers in order to keep the symptoms at bay. Patient will continue taking PPI as needed. Avoid late night snacking. Patient will eat more protein and vegetables decrease carbs per hydrate intake as well as food that are high in fat. Avoid eating fast food. She will return in the office if she will have any GI concerning symptoms otherwise patient will be following up with her PCP. She will call us if she will have any GI concerning symptoms. Patient is agreeable to this plan of care and verbalizes understanding of instructions. She was given the opportunity to ask questions and all questions answered. Thank you for allowing me to participate in her care Coding Level of Care Code Est Pt Level 3 (71002) Diagnoses Gastroesophageal reflux disease, unspecified whether esophagitis present K21.9 Esophagitis presence: esophagitis presence not specified Postprandial epigastric pain R10.13 Postprandial abdominal bloating R14.0 Time Spent (min) 25 Comment 15 minutes spent with patient and additional 10 minutes spent reviewing her records
== END 2024-09-13 17:00 | disposition home or self-care (01) ==
PROVIDERS: PCP Internal Medicine; Referring Provider Internal Medicine; Visit Provider Nurse Practitioner Family
DX: K21.9 Gastro-esophageal reflux disease without esophagitis (principal); R10.13 Epigastric pain; R14.0 Abdominal distension (gaseous)
CPT/HCPCS: 99213

== ENCOUNTER → 2024-09-13 15:56 | Outpatient (BNVA) | payer BC, SELFPAY | PROVIDERS: PCP Internal Medicine; Visit Provider Nurse Practitioner Family ==

== ENCOUNTER 2024-11-05 16:35 | Outpatient (REF) | payer BC, SELFPAY ==
--- OUTSIDE RECORDS SUMMARY | 2024-11-05 16:48 | XMS_ITS | Encounter Summary ---
Author Organization [facility] Address [address] [place] [address] Phone Care Team Providers Care Brewing Technician Name Role Phone Analia Shaikh MD Primary Care Provider [phone] Encounter Details Date Type Department Care Team (Late st Contact Info) Description 03/02/2010 Documentation [facility] [place] Family Medicine [address] [place] [address] Family Medicine, Physician [address], [place] [id number] Social History Tobacco Use Types Packs/Day Years Used Date Smoking Tobacco: Never Assessed Comments Unknown Sex and Gender Information Value Date Recorded Sex Assigned at Not on file Legal Sex Female 4:37 PM EDT Gender Identity Not on file Sexual Orientation Not on file documented as of this encounter Plan of Treatment Not on file documented as of this encounter Visit Diagnoses Not on filedocumented in this encounter Care Teams Brewing Technician Relationship Specialty Start Date End Date Analia Shaikh MD [address] [place] [address] [place] [address] PCP - General 05/23/17 12/25/22 documented as of this encounter
--- OUTSIDE RECORDS SUMMARY | 2024-11-05 16:48 | XMS_ITS | Encounter Summary ---
Author Organization [facility] Address [address] [place] [address] Phone Care Team Providers Care Production Finisher Name Role Phone Analia Shaikh MD Primary Care Provider [phone] Encounter Details Date Type Department Care Team (Late st Contact Info) Description 09/03/2011 Documentation [facility] [place] Family Medicine [address] [place] [address] Family Medicine, Physician [address], [place] [phone] Social History Tobacco Use Types Packs/Day Years [...] on filedocumented in this encounter Care Teams Production Finisher Relationship Specialty Start Date End Date Analia Shaikh MD [address] [place] [address] [place] [address] PCP - General 05/23/17 12/25/22 documented as of this encounter
--- OUTSIDE RECORDS SUMMARY | 2024-11-05 16:48 | XMS_ITS | Patient Health Record ---
Author Organization [facility] Address [address] [place] [address] Care Team Providers Care Certified Lactation Counselor Name Role Phone BENNY MONROE, CRIS Primary Care Provider KAYLI Herrera Unavailable [phone] Allergies Allergen (clinical drug ingredient) Drug/Non Drug Allergy documented on EMR Reaction Allergy Type Onset Date Status penicillin V Penicillin V Potassium Hives, Difficulty Breathing Drug Allergy Active Reason For Referral No Information Medications Medication SIG (Take, Route, Frequency, Duration) Notes Start Date End Date Status Probiotic Not-Taking Lysine Active Boric Acid Vaginal Capsules 600mg 1 Capsule Vaginally Every Night x 2 Weeks for 14 Days Uses when she feels fishy or yeasty Not-Taking + DHA 27-1 & 250 MG as directed Orally daily for 30 days 12/31/2018 Active ZyrTEC Allergy 10 MG 1 tablet Orally Once a day for 30 day(s) Not-Taking Fluticasone Propionate 50 MCG/ACT 1 spray in each nostril Nasally Once a day for 30 day(s) Active Social History Tobacco Use: Social History Observation Description Date Details (start date - stop date) Never Smoker NA - NA Tobacco Use/Smoking Question Answer Notes Are you a nonsmoker Alcohol Screen (Audit-C) Question Answer Notes Did you have a drink containing alcohol in the p ast year? No Points 0 Interpretation Negative Sexual History Question Answer Notes Had sex in the past 12 months (vaginal, oral, or anal)? Yes with Men only Use protection? No Have you ever had a Sexually transmitted disease ? Yes Chlamydia? Yes Herpes? Yes Tobacco use other than smoking: Question Answer Notes Are you an other tobacco user? No Problems Problem Type SNOMED Code ICD Code Onset Dates Problem Status W/U Status Risk Notes Problem Moderate recurrent major depression (20147116) Major depressive disorder, recurrent, moderate (F33.1) Active confirmed Problem Anxiety disorder (761481561) Anxiety disorder, unspecified (F41.9) Active confirmed Problem Amenorrhea (29948748) Amenorrhea, unspecified (N91.2) Active confirmed Problem Irregular menstruation (07110710) Irregular menstruation, unspecified (N92.6) Active confirmed Problem Female infertility (8070925) Female infertility, unspecified (N97.9) Active confirmed Plan Of Treatment Pending Test Test Name Order Date Test, Urine 03/12/2019 Test, Urine 09/13/2019 Urinalysis 08/31/2019 Urinalysis 03/12/2019 Hysterosalpingogram 05/24/2019 Hysterosalpingogram 06/08/2019 FSH 05/24/2019 LH 05/24/2019 TSH WITH REFLEX TO FT4 05/24/2019 PROLACTIN WITH REFLEX TO MONOMERIC 05/24 ULTRASOUND: PELVIC W/TRANSVAGINAL 2018 Insurance Providers Payer Name Payer Address Payer Phone Subscriber Number Group Number Insured Name Patient Relationship to Insured Coverage Start Date Coverage End Date [facility] [address] [place] [address] [id number] ALFREDA LI Self - patient is the insured Medical (General) History Medical History History ICD Code Headache R51 Major depressive disorder, recurrent, mo derate F33.1 Anxiety disorder, unspecified F41.9 Pelvic Pain R10.2 Unspecified abdominal pain R10.9 Irregular menstruation, unspecified N92. 6 Unspecified contact dermatitis, unspecif ied cause L25.9 Surgical History Surgery Date(Month/Year) Sinuplasty 10/2017 Hospitalization History Reason Date(Month/Year) See Surgical Hx
--- OUTSIDE RECORDS SUMMARY | 2024-11-05 16:48 | XMS_ITS | Encounter Summary ---
Author Organization [facility] Address [address] [place] [address] Phone Care Team Providers Care Oxide Furnace Tender Name Role Phone Analia Shaikh MD Primary Care Provider [phone] Encounter Details Date Type Department Care Team (Late st Contact Info) Description 09/17/2010 Documentation [facility] [place] Family Medicine [address] [place] [address] Family Medicine, Physician [address], [place] [phone] Social History Tobacco Use Types Packs/Day Years [...] on filedocumented in this encounter Care Teams Oxide Furnace Tender Relationship Specialty Start Date End Date Analia Shaikh MD [address] [place] [address] [place] [address] PCP - General 05/23/17 12/25/22 documented as of this encounter
--- OUTSIDE RECORDS SUMMARY | 2024-11-05 16:48 | XMS_ITS | Clinical Summary ---
Author Organization [facility] Address [address] [place] [address] Phone Care Team Providers Care Meat Cutting Block Repairer Name Role Phone Unavailable Primary Care Provider Unavailabl e Immunizations Name Administration Dates Next Due DTP 01/22/1995, 2,10/12/1991,06/12,02/09/1991 H1N1 08/01/2009 HPV, Quadrivalent 01/11/2008,09/11/2007,07/09/20 07 Hib (PRP-T) 06/12/1992, 1,06/12/1991,02/09 IPV 01/22/1995, 2,06/12/1991,02/09 Influenza Split 08/13/2010 Influenza, injectable, trivalent 08/01/2009,07/13 MMR 01/22/1995,06/12/1992 Meningococcal Conj (Menactra) MCV4P 07/09/2007 Td (adult) (MBL), 2 Lf tetan us toxoid, PF, adsorbed 08/01/2003 Tdap 07/09/2007 Unknown Vaccine 01/27/2009,11/14/2008,07/31/2008 Social History Tobacco Use Types Packs/Day Years Used Date Smoking Tobacco: Never Assessed Comments Unknown Sex and Gender Information Value Date Recorded Sex Assigned at Not on file Legal Sex Female 4:37 PM EDT Gender Identity Not on file Sexual Orientation Not on file Last Filed Vital Signs Vital Sign Reading Time Taken Comments Blood Pressure 108/60 01/07/2011 12:00 AM EDT Pulse 80 12/12/2010 12:00 AM EST Temperature 36.1 ??C (97 ??F) 02/05/2011 12:00 AM EDT Respiratory Rate - - Oxygen Saturation - - Inhaled Oxygen Concentration - - Weight 64.9 kg (143 lb) 02/05/2011 12:00 AM EDT Height 163.8 cm (5' 4.5 ) 08/13/2010 12:00 AM ED T Body Mass Index 24.17 08/13/2010 12:00 AM EDT Plan of Treatment Health Maintenance Due Date Last Done Comments Varicella Vaccines (1 of 2 - 13+ 2-dose series) 2003 Hepatitis B Vaccines (1 of 3 - 19+ 3-dose series) 2009 DTaP,Tdap,and Td Vaccines (7 - Td or Tdap) 07/09/2017 07/09/2007, 08/01/2003, 01/22/1995, Additional history exists Influenza Vaccines (#1) 2024 08/13/20, 08/01/2009, 07/28/2008 COVID-19 Vaccine (2023- season) 2024 HIB Vaccines Completed 06/12/1992, 09/14, 06/12/1991, Additional history exists IPV Vaccines Completed 01/22/1995, 05/15, 06/12/1991, Additional history exists MMR Vaccines Completed 01/22/1995, 06/12/1992 Meningococcal Vaccine Completed 07/09/2007 HPV Vaccines Completed 01/11/2008, 08/15, 07/09/2007 Hepatitis A Vaccines Aged Out No long er eligible based on patient's age to complete this topic Men B Vaccine Aged Out No longer elig ible based on patient's age to complete this topic Pneumococcal Vaccine Aged Out No long er eligible based on patient's age to complete this topic
--- OUTSIDE RECORDS SUMMARY | 2024-11-05 16:48 | XMS_ITS | Encounter Summary ---
Author Organization [facility] Address [address] [place] [address] Phone Care Team Providers Care Recycling Tech Name Role Phone Analia Shaikh MD Primary Care Provider [phone] Encounter Details Date Type Department Care Team (Late st Contact Info) Description 05/29/2017 Conversion Encounter [facility] [place] [address] [place] [address] Social History Tobacco Use Types Packs/Day Years [...] on filedocumented in this encounter Care Teams Recycling Tech Relationship Specialty Start Date End Date Analia Shaikh MD [address] [place] [address] PCP - General 05/23/17 12/25/22 documented as of this encounter
[2024-11-05 17:51] LABS: Erythrocyte Sedimentation Rate 5 MM/HR (0-20)
[2024-11-08 15:54] LABS: Anti Nuclear Antibody Screen NEGATIVE (NEGATIVE)
== END 2024-11-05 16:36 | disposition home or self-care (01) ==
LOC: HO.LAB 16:35
PROVIDERS: PCP Internal Medicine; Visit Provider Internal Medicine
DX: L63.8 Other alopecia areata (principal)
CPT/HCPCS: 36415; 85652; 86038

== ENCOUNTER 2024-12-28 08:06 | Outpatient (REF) | payer BC, SELFPAY ==
--- OUTSIDE RECORDS SUMMARY | 2024-12-28 08:12 | XMS_ITS | Encounter Summary ---
Author Organization [facility] Address [address] [place] [address] Phone Care Team Providers Care Sewage Plant Supervisor Name Role Phone Analia Shaikh MD Primary Care Provider [phone] Encounter Details Date Type Department Care Team (Late st Contact Info) Description 03/02/[address] [facility] [place] Family Medicine [address] [place] [address] Family Medicine, Physician [address], [place] [phone] Social History Tobacco Use Types Packs/Day Years [...] on filedocumented in this encounter Care Teams Sewage Plant Supervisor Relationship Specialty Start Date End Date Analia Shaikh MD [address] [place] [address] [place] [address] PCP - General 05/23/17 12/25/22 documented as of this encounter
--- OUTSIDE RECORDS SUMMARY | 2024-12-28 08:12 | XMS_ITS | Patient Health Record ---
Author Organization [facility] Address [address] [place] [address] Care Team Providers Care District Sales Representative Name Role Phone BENNY MONROE, CRIS Primary Care Provider KAYLI Herrera Unavailable [phone] Allergies Allergen (clinical drug ingredient) Drug/Non Drug [...] Risk Notes Problem Moderate recurrent major depression (14495795) Major depressive disorder, recurrent, moderate (F33.1) Active confirmed Problem Anxiety disorder (996245777) Anxiety disorder, unspecified (F41.9) Active confirmed Problem Amenorrhea (36564305) Amenorrhea, unspecified (N91.2) Active confirmed Problem Irregular menstruation (77940626) Irregular menstruation, unspecified (N92.6) Active confirmed Problem Female infertility (6567587) Female infertility, unspecified (N97.9) Active confirmed Plan [...] Insured Coverage Start Date Coverage End Date [facility] [address] [place] [address] [id number] ALFREDA LI Self - patient is the [...]
--- OUTSIDE RECORDS SUMMARY | 2024-12-28 08:12 | XMS_ITS | Encounter Summary ---
Author Organization [facility] Address [address] [place] [address] Phone Care Team Providers Care Photo Checker Name Role Phone Analia Shaikh MD Primary Care Provider [phone] Encounter Details Date Type Department Care Team (Late st Contact Info) Description 09/03/2011 Documentation [facility] [place] Family Medicine [address] [place] [address] Family Medicine, Physician [address], [place] [phone] Social History Tobacco Use Types Packs/Day Years [...] on filedocumented in this encounter Care Teams Photo Checker Relationship Specialty Start Date End Date Analia Shaikh MD [address] [place] [address] [place] [address] PCP - General 05/23/17 12/25/22 documented as of this encounter
--- OUTSIDE RECORDS SUMMARY | 2024-12-28 08:12 | XMS_ITS | Clinical Summary ---
Author Organization [facility] Address [address] [place] [address] Phone Care Team Providers Care Class A Regional Truck Driver Name Role Phone Unavailable Primary Care Provider Unavailabl e Immunizations Immunization Administration Dates Next Due DTP 01/22/1995, 2,10/12/1991,06/12,02/09/1991 [...]
--- OUTSIDE RECORDS SUMMARY | 2024-12-28 08:12 | XMS_ITS | Continuity of Care Document ---
Author Organization [facility] Address [address] [address] Care Team Providers Care Embossing Press Operator Apprentice Name Role Phone James MONROE, Ruth Ann Leroy Primary Care Physician [phone] [id number]): [facility]12[facility]24 - 12/12/24 [facility] [address] [place] [address] Encounter Type: Triage Allergies, Adverse Reactions, Alerts Substance Criticality Severity Reaction Reaction Severity Status penicillin hives/chest tightness Active Medications Padma By Mouth, 0 Refills, Maintenance, 01/20/24 6:29:00 PM EDT, Partial fill upon patient request if the prescription is for a schedule II opioid drug. Start Date: 01/20/24 Status: Ordered Repeat number: 1 fluconazole 150 mg oral tablet 1 tablet = 150 mg, By Mouth, Once, epeat dose if still having symptoms in 72 hours, # 2 tablet, 0 Refills, Soft Stop, 11/12/24 7:48:00 AM EST, Tablet, [id number], Partial fill upon patient request if the prescription is for a schedule II opioid drug., 164, cm, 11/10/24 17:48:00 EST, Height, 86.6, kg, 10/27/24 16:21:00 EST, Dry Weight Start Date: 11/12/24 Status: Ordered Quantity: 2.0 Unit: tablet Repeat number: 1 Multi Vitamin+ 0 Refills, Maintenance, 12/04/22 1:41:00 PM EST, Partial fill upon patient request if the prescription is for a schedule II opioid drug. Start Date: 12/04/22 Status: Ordered Repeat number: 1 norethindrone 0.35 mg oral tablet 1 tablet = 0.35 mg, By Mouth, Daily, # 90 tablet, 4 Refills, Maintenance, 11/10/24 6:17:00 PM EST, Tablet, [id number], Partial fill upon patient request if the prescription is for a schedule II opioid drug., 164, cm, 11/10/24 17:48:00 EST, Height, 86.6, kg, 10/27/24 16:21:00 EST, Dry Weight Start Date: 11/10/24 Status: Ordered Quantity: 90.0 Unit: tablet Repeat number: 5 valACYclovir 500 mg oral tablet 500 mg, 1, tablet, By Mouth, Daily, # 90 tablet, Refills 4, Tot. Refills 4, Maintenance, 01/20/24 7:21:00 PM EDT, Route to Pharmacy Electronically, [id number], Partial fill upon patient requestif the prescription is for a schedule II opioid drug., 164, cm, 01/20/24 18:28:00 EDT, Height, 87.16, kg, 08/26/23 16:56:00 EST, Dry Weight Start Date: 01/20/24 Status: Ordered Quantity: 90.0 Unit: tablet Repeat number: 5 Problem List Condition Confirmation Course Effective Dates Status Health St atus Informant Left breast mass Confirmed Active Chronic pelvic pain in female Confirmed Active Infertility, female Confirmed Active Genital HSV Confirmed Active Obese class I Confirmed Active Social History Social History Type Response Smoking Status Never smoker entered on: 09/01/14 Sex Sex Representation Female (finding) Patient Care team information Care Team Personnel Name: Ruth Ann Ramirez MD Position: [facility] Outreach Member Role: PCP Address: [address] [place] [address]- Telecom: Care Team Related Persons Name: ALYSONCEE JAMES Name: MAYDA YOUNG Name: TAE YOUNG Name: BLANK VIVAR Insurance Providers [facility]or [facility] Information #: 1 Payer: HMO [employer] IN NETWORK Member Number: NA Policy Number: NA Group Number: NA
--- OUTSIDE RECORDS SUMMARY | 2024-12-28 08:12 | XMS_ITS | Encounter Summary ---
Author Organization [facility] Address [address] [place] [address] Phone Care Team Providers Care Tele Rn Name Role Phone Analia Shaikh MD Primary Care Provider [phone] Encounter Details Date Type Department Care Team (Late st Contact Info) Description 05/29/2017 Conversion Encounter [facility] [place] [address] [place] [address] Social History Tobacco Use Types Packs/Day Years [...] on filedocumented in this encounter Care Teams Tele Rn Relationship Specialty Start Date End Date Analia Shaikh MD [address] [place] [address] PCP - General 05/23/17 12/25/22 documented as of this encounter
--- OUTSIDE RECORDS SUMMARY | 2024-12-28 08:12 | XMS_ITS | Encounter Summary ---
Author Organization [facility] Address [address] [place] [address] Phone Care Team Providers Care Flame Annealing Machine Setter Name Role Phone Analia Shaikh MD Primary Care Provider Encounter Details Date Type Department Care Team (Late st Contact Info) Description 09/17/2010 Documentation [facility] [place] Family Medicine [address] [place] [address] Family Medicine, Physician [address] [place], [place] [id number] Social History Tobacco Use Types Packs/Day Years [...] on filedocumented in this encounter Care Teams Flame Annealing Machine Setter Relationship Specialty Start Date End Date Analia Shaikh MD [address] [place] [address] [place] [address] PCP - General 05/23/17 12/25/22 documented as of this encounter
--- NOTE | 2024-12-28 08:15 | EMG_ITS ---
Left tibial and peroneal motor studies were performed. Left superficial peroneal and sural sensory studies were performed. Median and lateral plantar sensory studies were also performed. Tibial H-reflex was obtained, and needle examination was performed. 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 MD CHINO Houston/ESVINL / [id number]
== END 2024-12-28 08:07 | disposition home or self-care (01) ==
LOC: HO.NEURO 08:06
PROVIDERS: PCP Internal Medicine; Visit Provider Internal Medicine
DX: G57.92 Unspecified mononeuropathy of left lower limb (principal)
CPT/HCPCS: 95886; 95910

== ENCOUNTER 2025-01-29 10:30 | Outpatient (REF) | payer BC, SELFPAY ==
--- OUTSIDE RECORDS SUMMARY | 2025-01-29 10:32 | XMS_ITS | Continuity of Care Document ---
Author Organization [facility] Juan giless [facility] Address [address] [place] [address], [address] [place] [address]- Care Team Providers Care Water Supervisor Name Role Phone James MONROE, Ruth Ann Leroy Primary Care Physician [id number] Date[facility]): [facility]18[facility] - 01[facility]25/25 [facility] Juangem StantonRebelles [facility] [address] [place] [address], [address] [place], [place] [address] Attending Physician: Tracie Wade MD Referring Physician: Ruth Ann Ramirez MD Encounter Type: Office Visit Allergies, Adverse Reactions, Alerts Substance Criticality Severity [...] Refills, Maintenance, 11/10/24 6:17:00 PM EST, Tablet, [facility]/pharmacy #[id number], Partial fill upon patient request if [...] 7:21:00 PM EDT, Route to Pharmacy Electronically, [facility]/pharmacy #[id number], Partial fill upon patient requestif the [...] Personnel Name: Ruth Ann Ramirez MD Position: [facility] Outreach Member Role: PCP Address: [address] [place] [address]- Telecom: Care Team Related Persons Name: JAMES LEAL Name: MAYDA YOUNG Name: TAE YOUNG Name: BLANK VIVAR Insurance Providers Guarantor name: ALFREDA KULKARNISUS imoji Plan Information #: 1 Payer: HMO BL[employer] NETWORK Member Number: [id number] Policy Number: NA Group Number: NA Health Plan Information #: 2 Payer: HMO BL[employer] NETWORK Member Number: [id number] Policy Number: NA Group Number: NA
--- OUTSIDE RECORDS SUMMARY | 2025-01-29 10:32 | XMS_ITS | Clinical Summary ---
Author Organization [facility] Address [address] [place] [address] Phone Care Team Providers Care Telegraphic Typewriter Mechanic Name Role Phone Unavailable Primary Care Provider [...]
--- OUTSIDE RECORDS SUMMARY | 2025-01-29 10:32 | XMS_ITS | Encounter Summary ---
Author Organization [facility] Address [address] [place] [address] Phone Care Team Providers Care Yarn Skeins Examiner Name Role Phone Analia Shaikh MD Primary Care Provider [phone] Encounter Details Date Type Department Care Team (Late st Contact Info) Description 03/02/2010 Documentation [facility] [place] [address] [place] [address] Family Medicine, Physician [address], [place] [phone] Social History Tobacco Use Types Packs/Day Years [...] on filedocumented in this encounter Care Teams Yarn Skeins Examiner Relationship Specialty Start Date End Date Analia Shaikh MD [address] [place] [address] [place] [address] PCP - General 05/23/17 12/25/22 documented as of this encounter
--- OUTSIDE RECORDS SUMMARY | 2025-01-29 10:32 | XMS_ITS | Encounter Summary ---
Author Organization [facility] Address [address] [place] [address] Phone Care Team Providers Care Talent Acquisition Partner Name Role Phone Analia Shaikh MD Primary Care Provider [phone] Encounter Details Date Type Department Care Team (Late st Contact Info) Description 09/03/2011 Documentation [facility] [place] [address] [place] [address] Family Medicine, Physician [address] [place] [id number] Social History Tobacco Use Types Packs/Day Years [...] on filedocumented in this encounter Care Teams Talent Acquisition Partner Relationship Specialty Start Date End Date Analia Shaikh MD [address] [place] [address] [place] [address] PCP - General 05/23/17 12/25/22 documented as of this encounter
--- OUTSIDE RECORDS SUMMARY | 2025-01-29 10:32 | XMS_ITS | Encounter Summary ---
Author Organization [facility] Address [address] [place] [address] Phone Care Team Providers Care Biomedical Engineering Technologist Name Role Phone Analia Shaikh MD Primary Care Provider [phone] Encounter Details Date Type Department Care Team (Late st Contact Info) Description 09/17/2010 Documentation [facility] [address] [place] [address] Family Medicine, Physician [address] [place], [place] [phone] Social History Tobacco Use Types Packs/Day Years [...] on filedocumented in this encounter Care Teams Biomedical Engineering Technologist Relationship Specialty Start Date End Date Analia Shaikh MD [address] [place] [address] [place] [address] PCP - General 05/23/17 12/25/22 documented as of this encounter
--- OUTSIDE RECORDS SUMMARY | 2025-01-29 10:32 | XMS_ITS | Encounter Summary ---
Author Organization [facility] Address [address] [place] [address] Phone Care Team Providers Care Gi Technician Name Role Phone Analia Shaikh MD Primary Care Provider [phone] Encounter Details Date Type Department Care Team (Late st Contact Info) Description 05/29/2017 Conversion Encounter [facility] [address] [place] [address] Social History Tobacco Use Types Packs/Day Years [...] on filedocumented in this encounter Care Teams Gi Technician Relationship Specialty Start Date End Date Analia Shaikh MD [address] [place] [address] PCP - General 05/23/17 12/25/22 documented as of this encounter
--- OUTSIDE RECORDS SUMMARY | 2025-01-29 10:32 | XMS_ITS | Patient Health Record ---
Author Organization [employer] [facility] Address [address] [place] [address] Care Team Providers Care Career Technical Counselor Name Role Phone BENNY MONROE, CRIS Primary Care Provider KAYLI Herrera Unavailable [phone] Allergies Allergen (clinical drug ingredient) Drug/Non Drug [...] Risk Notes Problem Moderate recurrent major depression (25946544) Major depressive disorder, recurrent, moderate (F33.1) Active confirmed Problem Anxiety disorder (526771494) Anxiety disorder, unspecified (F41.9) Active confirmed Problem Amenorrhea (28686455) Amenorrhea, unspecified (N91.2) Active confirmed Problem Irregular menstruation (79893275) Irregular menstruation, unspecified (N92.6) Active confirmed Problem Female infertility (5508376) Female infertility, unspecified (N97.9) Active confirmed Plan Of Treatment Pending Test Test Name Order Date Test, Urine 03/12/2019 Test, Urine 09/13/2019 Urinalysis 03/12/2019 Urinalysis 08/31/2019 Hysterosalpingogram 06/08/2019 Hysterosalpingogram 05/24/2019 FSH 05/24/2019 LH 05/24/2019 TSH WITH REFLEX TO FT4 05/24/2019 PROLACTIN WITH REFLEX TO MONOMERIC 05/24 ULTRASOUND: PELVIC W/TRANSVAGINAL 2018 Insurance Providers Payer Name Payer Address Payer Phone Subscriber Number Group Number Insured Name Patient Relationship to Insured Coverage Start Date Coverage End Date [facility] [address] [place] [address] [id number] ALFREDA LI Self - patient is the [...]
[2025-01-29 12:10] LABS: Folate 13.4 ng/mL (> or = 4.0); Vitamin B12 592 pg/mL (200-900)
== END 2025-01-29 10:31 | disposition home or self-care (01) ==
LOC: HO.LAB 10:30
PROVIDERS: PCP Internal Medicine; Visit Provider Internal Medicine
DX: M51.16 Intervertebral disc disorders with radiculopathy, lumbar region (principal); G62.9 Polyneuropathy, unspecified
CPT/HCPCS: 36415; 82607; 82746

== ENCOUNTER 2025-04-12 15:51 | Outpatient (AMB) | payer BC, SELFPAY ==
--- NOTE | 2025-04-12 15:20 | MHC.OFFVIS ---
Intake Visit Reasons: after testing Allergies penicillin V Allergy (Unknown, Verified 09/13/24 15:59) hives amitriptyline Adverse Reaction (Intermediate, Verified 09/13/24 15:59) Dizziness amoxicillin Adverse Reaction (Intermediate, Verified 09/13/24 15:59) Hives topiramate (From Topamax) Adverse Reaction (Intermediate, Verified 09/13/24 15:59) Confusion seasonal allergies Allergy (Unknown, Uncoded 09/10/22 16:07) Unknown Medication List - Last Reconciled 04/12/25 by Tomas Mendez MD azelastine intranasal docusate sodium 100 mg PO BEDTIME fexofenadine 180 mg PO DAILY ibuprofen 800 mg PO TID PRN montelukast 10 mg PO DAILY multivitamin 1 tab PO DAILY norethindrone (contraceptive) (Melissa) 0.35 mg PO DAILY omeprazole 20 mg PO DAILY triamcinolone acetonide 0.5% 1 appl topical BID valacyclovir 500 mg PO DAILY HPI Comments Details: This is a 34-year-old woman with a 4 month history of numbness, tingling and pain in both feet up to the midshin level, with the left being worse than the right.? She had a limited left lower extremity nerve conduction on 12/28/24, which is reported as showing mild sensorimotor peripheral neuropathy.? She has no history of Lyme disease, diabetes, and no family history of neuropathy.? In the past she's been treated for migraines. We repeated her NCV/ EMG on 04/06/25 and did both legs. The study was completely normal with normal motor and sensory nerve conduction velocities in the lower extremities. Normal EMG of the left L4-S1 innervated muscles. The previously reported abnormal study could not be reproduced and all the sensory action potentials that were missing in the previous study were obtained on this study. 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 Will be seeing rheumatology for ankle joint pain. Tingling is better. Will also be seeing a foot doctor for insoles. 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 Sleep Difficulty getting to sleep?admits.?Difficulty maintaining sleep?admits.?Urge to move legs?admits.?Teeth grinding?admits.?Shouting or Kicking during sleep?denies.?Abnormal behavior during sleep?denies.?Excessive sleep?denies.?Snoring?admits.?Daytime sleepiness?denies. ? General/Constitutional Change in appetite?denies.?Chills?denies.?Fatigue?admits.?Fever?denies.?Weight gain?admits.?Weight loss?denies. ? Ophthalmologic Blurred vision?admits.?Diminished visual acuity?denies. ? ENT Stuffiness?admits.?Decreased hearing?denies.?Dry mouth?denies.?Ear pain?admits.?Nosebleed?denies.?Ringing in the ears?denies.?Sinus pain?admits.?Sore throat?denies.?Swollen glands?denies. ? Endocrine Cold intolerance?denies.?Excessive thirst?denies.?Frequent urination?denies.?Heat intolerance?denies. ? Respiratory Shortness of breath?denies.?Chest pain?denies.?Cough?denies. ? Breast Breast lump?denies.?Nipple discharge?denies. ? Cardiovascular Chest pain at rest?admits.?Chest pain with exertion?denies.?Claudication?denies.?Dizziness?denies.?Fluid accumulation in the legs?denies.?Irregular heartbeat?denies.?Palpitations?denies. ? Gastrointestinal Abdominal pain?denies.?Constipation?denies.?Diarrhea?denies.?Difficulty swallowing?denies.?Heartburn?denies.?Nausea?admits.?Rectal bleeding?denies. ? Hematology Easy bruising?denies.?Prolonged bleeding?denies. ? Genitourinary Frequent urination?denies.?Urgency?denies.?Incontinence?denies.?Erectile Dysfunction?denies. ? Musculoskeletal Neck pain?admits.?Back pain?admits.?Muscle aches?denies.?Painful joints?denies.?Sciatica?denies.?Weakness?denies. ? Podiatric Difficulty walking?denies.?Foot numbness?denies. ? Neurologic Difficulty swallowing?denies.?Balance difficulty?denies.?Coordination?normal.?Difficulty speaking?denies.?Dizziness?admits.?Fainting?denies.?Gait abnormality?denies.?Headache?that is chronic.?Loss of strength?denies.?Loss of use of extremity?denies.?Low back pain?denies.?Memory loss?denies.?Seizures?denies.?Tics?denies.?Tingling/Numbness?,?bilateral lower extremities.?Transient loss of vision?denies.?Tremor?denies. ? Psychiatric Anxiety?admits.?Auditory/visual hallucinations?denies.?Delusions?denies.?Depressed mood?admits.?Stressors?denies.?Substance abuse?denies.?Suicidal thoughts?denies. Physical Exam Neuro Other: Abnormal neurological findings:??none.? Mental Status:?alert and oriented X 3,?Normal attention, orientation, memory and affect.? Cranial Nerves:?Pupils are equal, round and reactive to light. Fundoscopy shows normal disc bilaterally. External occular muscles are intact. Visual haro are full, no ptosis. Face is symmetrical, no facial weakness or droop. Facial sensations are normal. Tongue protrudes in midline. Palate elevates symmetrically. Shoulder shrugging is normal..? Motor Examination:?Normal muscle tone, bulk and strength,?No atrophy or fasciculations,?No drift of the extended upper extremities,?Deep tendon reflexes are 2+?,?Plantars are flexor?.? Straight Leg Raising:?90 degrees.? Sensory Exam:?Normal light touch, temperature, pinprick, vibration and joint-position sensations?,?Rhomberg sign is absent.? Coordination:?no ataxia,?no titubation,?ozkrrl-pr-koor, vepy-blsn-prck test and rapid alternating movements were normal.? Gait Exam:?Within normal limits.? Cerebellar Signs:?Hsrxzh-wi-zrdx and kakg-bz-gegg is normal,?no dysdiadochokinesia?.? Extrapyramidal System:?No tremor, rigidity with normal facial expressions,?No bradykinesia, no bradyphrenia. Normal arm swing and posture. No propulsion or retropulsion.? Speech:?Normal,?no dysphasia or dysarthria..? Mini Mental Status Exam Level of Consciousness:?Alert.? Orientation:?Knows correct year, month, date, day and season,?Knows correct city, county and state. Knows correct location and floor.? Registration:?Able to register 3 objects.? Attention:?Serial 7's performed accurately.? Recall:?Able to recall 3 out of 3 objects.? Language:?Normal spontaneous speech, fluency, repetition,naming, comprehension, reading and writing.? Total Score:?30/30.? General Examination GENERAL APPEARANCE:?normal,?in no acute distress.? HEAD:?normocephalic,?atraumatic.? EYES:?sclera non-icteric,?conjunctiva clear.? EARS:?auditory canal clear,?tympanic membrane intact, clear.? NOSE:?no lesions.? ORAL CAVITY:?gums normal,?mucosa moist,?no lesions.? THROAT:?clear.? NECK/THYROID:?no cervical lymphadenopathy,?thyroid normal,?neck supple, full range of motion,?no carotid bruit.? SKIN:?no rashes,?no significant birthmarks.? HEART:?S1, S2 normal,?no murmurs.? LUNGS:?clear anteriorly and posteriorly.? CHEST:?no gross rib deformity,?clear to auscultation.? BACK:?normal exam of spine.? EXTREMITIES:?no edema.? PERIPHERAL PULSES:?normal.? PSYCH:?alert, oriented,?cognitive function intact,?cooperative with exam.? Assessment & Plan Assessment & Plan (1) Paresthesia of both feet: Code(s): R20.2 - Paresthesia of skin Category: Medical Plan No evidence of neuropathy. F/u with foot doctor for insoles. F/U with Rheumatology for ankle pains. Coding Level of Care Code Est Pt Level 3 (42639) Diagnoses Paresthesia of both feet R20.2
--- OUTSIDE RECORDS SUMMARY | 2025-04-12 16:22 | XMS_ITS | Patient Health Record ---
Author Organization [employer] [facility] Address [address] [place] [address] Care Team Providers Care Aircraft Air Conditioning Mechanic Name Role Phone BENNY MONROE, CRIS Primary Care Provider KAYLI Herrera Unavailable [phone] Allergies Allergen (clinical drug ingredient) Drug/Non Drug Allergy documented on EMR Reaction Allergy Type Onset Date Status Information temporarily unavailable Penicillin V Potassium Hives, Difficulty Breathing Drug Allergy Active Reason For Referral No Information Medications Medication SIG (Take, Route, Frequency, Duration) Notes Start Date End Date Status Probiotic Not-Taking Lysine Active Boric Acid Vaginal Capsules 600mg 1 Capsule Vaginally Every Night x 2 Weeks; Duration: 14 Days Uses when she feels fishy or yeasty Not-Taking + DHA 27-1 & 250 MG as directed Orally daily; Duration: 30 days 12/31/2018 Active ZyrTEC Allergy 10 MG 1 tablet Orally Once a day; Duration: 30 day(s) Not-Taking Fluticasone Propionate 50 MCG/ACT 1 spray in each nostril Nasally Once a day; Duration: 30 day(s) Active Social History Tobacco Use: [...] Risk Notes Problem Moderate recurrent major depression (23579074) Major depressive disorder, recurrent, moderate (F33.1) Active confirmed Problem Anxiety disorder (693202796) Anxiety disorder, unspecified (F41.9) Active confirmed Problem Amenorrhea (11538684) Amenorrhea, unspecified (N91.2) Active confirmed Problem Irregular menstruation (90452763) Irregular menstruation, unspecified (N92.6) Active confirmed Problem Female infertility (0453528) Female infertility, unspecified (N97.9) Active confirmed Plan [...] Insured Coverage Start Date Coverage End Date [facility] [address] [place] [id number] ALFREDA LI Self - patient is the [...]
--- OUTSIDE RECORDS SUMMARY | 2025-04-12 16:22 | XMS_ITS | Clinical Summary ---
Author Organization [facility] Address [address] [place] [address] Phone Care Team Providers Care Stock Car Driver Name Role Phone Unavailable Primary Care [...] 80 12/12/2010 12:00 AM EST Temperature 36.1 C (97 F) 02/05/2011 12:00 AM EDT Respiratory Rate - [...] 07/09/2017 07/09/2007, 08/01/2003, 01/22/1995, Additional history exists COVID-19 Vaccine ( season) 2024 Influenza Vaccines (#1) 2025 08/13/20, 08/01/2009, 07/28/2008 HIB Vaccines Completed 06/12/1992, 09/14, 06/12/1991, Additional [...]
--- OUTSIDE RECORDS SUMMARY | 2025-04-12 16:22 | XMS_ITS | Data Portability ---
Author Organization [place] - [facility], Allergy Address [address] [place] [phone] Care Team Providers Care Juice Bar Team Member Name Role Phone CRIS ZAPATA Primary Care Provider Assessment Encounter Date Assessment Date Assessment LastModified by Organization Details LastModified Time 03/02/2025 03/02/2025 Visit With: Dottie Morin Use of Antihistamine s: Yes If yes: Vial Test Change in medications: No If yes Increase in asthma symptoms If yes, inhaler use: Reaction to last injections: No If yes: Allergy Symptoms: Other: Missed: Dose Aware of Vial Test Notes: mecca Not available 03/02/2025 17:23:38 03/09/2025 03/09/2025 Visit With: KIET Maldonado Use of Antihistamine s: Yes If yes: Vial Test Change in medications: No If yes Increase in asthma symptoms If yes, inhaler use: Reaction to last injections: No If yes: Allergy Symptoms: Other: Missed: Dose Aware of Vial Test Notes: Not available 03/09/2025 17:14:19 03/16/2025 03/16/2025 Visit With: KIET Maldonado Use of Antihistamine s: Yes If yes: Vial Test Change in medications: No If yes Increase in asthma symptoms If yes, inhaler use: Reaction to last injections: No If yes: Allergy Symptoms: Other: Missed: Dose Aware of Vial Test Notes: mecca Not available 03/16/2025 17:06:20 03/23/2025 03/23/2025 Visit With: KIET Maldonado Use of Antihistamine s: Yes If yes: Vial Test Change in medications: No If yes Increase in asthma symptoms If yes, inhaler use: Reaction to last injections: No If yes: Allergy Symptoms: Other: Missed: Dose Aware of Vial Test Aware: Notes: mecca Not available 03/23/2025 16:59:10 04/06/2025 04/06/2025 Visit With: Claire ManeCHARMAINE velazquezAndree Use of Antihistamine s: No If yes: Vial Test Change in medications: No If yes Increase in asthma symptoms If yes, inhaler use: Reaction to last injections: No If yes: Allergy Symptoms: Other: Missed: Dose Aware of Vial Test Yes Aware: Notes: [email or web address] Not available 04/06/2025 13:43:01 Plan of Treatment Reminders Order Date Submit Date Provider Last Modified By Organization Details Last Modified Time Details Appointments [facility]- Allergy f-up 6mon 2024 02:00P M SHAQUILLE Woods MD Not available Not available Not available Lab None recorded . Referral None recorded . Procedures None recorded . Surgeries None recorded . Imaging None recorded . Medication Orders None recorded . Patient TargetsNo targets recorded. Patient InstructionsNo instructions recorded. Reason for Referral None Reported. Problems Name Problem SNOMED Code Status Onset Date Resolution Date Notes Provider Name and Address Organization Details Recorded Time Nasal congestio n 38804044 Active 2017 Nasal congestio n; Note: Date Diagnosed : 12/30/2017 4:34 PM (R09.81) Not Available [facility] 4 02:15:12 Snoring 47876020 Active 2016 Snoring; Note: Date Diagnosed : 7 2:03 PM (R06.83) Not Available [facility] 4 02:15:52 Pain of right temporoma ndibular joint [id number] 572228 Active 2016 Arthralgi a of right temporoma ndibular joint; Note: Date Diagnosed : 03/21/2017 3:41 PM (M26.621) Not Available [facility] 4 02:15:40 Mouth breathing 47542034 Active 2016 Mouth breathing ; Note: Date Diagnosed : 7 2:03 PM (R06.5) Not Available [facility] 4 02:15:39 Posterior rhinorrhe a 60524126 Active 2018 Postnasal drip; Note: Date Diagnosed : 03/31/2019 4:31 PM (R09.82) Not Available [facility] 4 02:15:16 Chronic sinusitis 71486487 Active 2016 Chronic sinusitis , unspecifi ed; Note: Date Diagnosed : 12/19/2016 4:02 PM (J32.9) Not Available [facility] 4 02:15:22 Headache 29669991 Active 2016 Headache, unspecifi ed; Note: Changed from R51 to R51.9 ( 2 2:13 PM) , Date Diagnosed : 01/09/2017 4:01 PM (R51) Not Available [facility] 4 02:15:51 Allergic rhinitis 85362395 Active 2020 Allergic rhinitis: Due to other allergen; Note: Date Diagnosed : 01/17/2021 5:00 PM (477.8) Note: Date Diagnosed : 01/17/2021 5:00 PM (477.8) Allergi c rhinitis: Due to other allergen; Note: Date Diagnosed : 01/03/2021 1:35 PM (477.8) Note: Date Diagnosed : 01/03/2021 1:35 PM (477.8) ; Start Date : Allergi c rhinitis: Due to other allergen; Note: Date Diagnosed : 12/20/2020 1:57 PM (477.8) Note: Date Diagnosed : 12/20/2020 1:57 PM (477.8) ; Start Date : Allergi c rhinitis: Due to other allergen; Note: Date Diagnosed : 12/11/2020 10:14 AM (477.8) Note: Date Diagnosed : 12/11/2020 10:14 AM (477.8) ; Start Date : Allergi c Rhinitis; Note: Date Diagnosed : 3:49 PM (477.9) Note: Date Diagnosed : 3:49 PM (477.9) ; Start Date : 9 Allergi c rhinitis: Due to other allergen; Note: Date Diagnosed : 9 4:23 PM (477.8) Note: Date Diagnosed : 9 4:23 PM (477.8) ; Start Date : 9 Allergi c rhinitis: Due to other allergen; Note: Date Diagnosed : 9 4:33 PM (477.8) Note: Date Diagnosed : 9 4:33 PM (477.8) ; Start Date : 9 Allergi c rhinitis: Due to other allergen; Note: Date Diagnosed : 06/17/2019 5:26 PM (477.8) Note: Date Diagnosed : 06/17/2019 5:26 PM (477.8) ; Start Date : 9 Allergi c rhinitis: Due to other allergen; Note: Date Diagnosed : 05/04/2019 8:56 AM (477.8) Note: Date Diagnosed : 05/04/2019 8:56 AM (477.8) ; Start Date : 9 Allergi c rhinitis: Due to other allergen; Note: Date Diagnosed : 01/06/2019 4:12 PM (477.8) Note: Date Diagnosed : 01/06/2019 4:12 PM (477.8) ; Start Date : 9 Allergi c rhinitis: Due to other allergen; Note: Date Diagnosed : 12/24/2018 4:17 PM (477.8) Note: Date Diagnosed : 12/24/2018 4:17 PM (477.8) ; Start Date : 9 Allergi c rhinitis: Due to other allergen; Note: Date Diagnosed : 12/10/2018 5:46 PM (477.8) Note: Date Diagnosed : 12/10/2018 5:46 PM (477.8) ; Start Date : 9 Allergi c rhinitis: Due to other allergen; Note: Date Diagnosed : 12/02/2018 2:24 PM (477.8) Note: Date Diagnosed : 12/02/2018 2:24 PM (477.8) ; Start Date : 9 Allergi c rhinitis: Due to other allergen; Note: Date Diagnosed : 8 5:40 PM (477.8) Note: Date Diagnosed : 8 5:40 PM (477.8) ; Start Date : 8 Allergi c rhinitis: Due to other allergen; Note: Date Diagnosed : 05/07/2017 10:09 AM (477.8) Note: Date Diagnosed : 05/07/2017 10:09 AM (477.8) ; Start Date : 7 Other allergic rhinitis; Note: Date Diagnosed : 01/09/2017 4:37 PM (J30.89) Note: Date Diagnosed : 01/09/2017 4:37 PM (J30.89) ; Start Date : 7 Not Available [facility] 4 00:52:07 Abnormal auditory perceptio n 40170401 Active 2017 Other abnormal auditory perceptio ns, bilateral ; Note: Date Diagnosed : 8 4:14 PM (H93.293) Not Available [facility] 4 02:15:57 Mild intermitt ent asthma 921913446 Active 2021 Mild intermitt ent asthma NOS; Note: Date Diagnosed : 02/28/2022 5:07 PM (J45.20) Not Available [facility] 4 02:15:46 Atypical facial pain 96519089 Active 2016 Atypical facial pain; Note: Changed from R51 to G50.1 ( 2 2:14 PM) , Date Diagnosed : 01/09/2017 4:06 PM (R51) Not Available [facility] 4 02:15:46 Hypertrop hy of nasal turbinate s 71763265 Active 2016 Hypertrop hy of nasal turbinate s; Note: Date Diagnosed : 7 2:14 PM (J34.3) Not Available [facility] 4 02:16:04 Otalgia of right ear 7324925274 Active 2016 Otalgia, right ear; Note: Date Diagnosed : 03/21/2017 3:41 PM (H92.01) Not Available [facility] 4 02:15:12 Gastroeso phageal reflux disease without esophagit is 617324589 Active 2018 Gastro-es ophageal reflux disease without esophagit is; Note: Date Diagnosed : 03/31/2019 4:43 PM (K21.9) Not Available [facility] 4 02:15:12 Acute maxillary sinusitis 36052264 Active 2022 Acute recurrent maxillary sinusitis ; Note: Date Diagnosed : 05/30/2023 3:36 PM (J01.01) Not Available [facility] 4 02:15:07 Dysphonia 74529115 Active 2020 Hoarsenes s; Note: Date Diagnosed : 07/09/2021 2:59 PM (R49.0) Hoarsen ess; Note: Date Diagnosed : 03/31/2019 4:43 PM (R49.0) ; Start Date : 9 Not Available [facility] 4 02:15:25 Follow-up visit Active 2017 Encounter for follow-up examinati on after completed treatment for condition s other than malignant neoplasm; Note: Date Diagnosed : 11/10/2017 10:08 AM (Z09) Not Available [facility] 4 02:15:57 Seasonal allergic rhinitis 244080170 Active 2023 SHAQUILLE BURNETTE MD [address] [facility],[address], [phone] , [facility] - [facility] 4 18:35:17 Perennial allergic rhinitis 364906010 Active [address]OSA [address], [address] , [facility] 4 15:02:07 Problem Notes None recorded. Procedures Surgical History Date Name Laterality Status Provider Name and Address Organization Details Recorded Time 04/06/20 25 Allergy Immunotherapy Injections completed CLAIRE SOSA [address], [address], [facility] - [facility] 04/06/2025 13:42:54 03/23/20 25 Allergy Immunotherapy Injections completed CLAIRE KORZEC, RMA [address], [place], [address], [place] [facility] 03/23/2025 16:59:05 03/16/20 25 Allergy Immunotherapy Injections completed CLAIRE ANTONIETTAC, RMA [address], [place], [address], [place] [facility] 03/16/2025 17:06:14 03/09/20 25 Allergy Immunotherapy Injections completed DOTTIE MORIN RMA [address], [place], [address], [place] [facility] 03/09/2025 17:14:04 03/02/20 25 Allergy Immunotherapy Injections completed CLAIRE ANTONIETTAC, RMA [address], [place], [address], [place] [facility] 03/02/2025 17:23:26 02/24/20 25 Allergy Immunotherapy Injections completed CLAIRE MANEC, RMA [address], [place], [address], [place] [facility] 02/23/2025 14:54:03 02/17/20 25 Allergy Immunotherapy Injections completed CLAIRE ANTONIETTAC, RMA [address], [address], [facility] - [facility] 02/16/2025 16:52:34 02/10/20 25 Allergy Immunotherapy Injections completed DOTTIE MORIN RMA [address], [address], [facility] - [facility] 02/09/2025 17:08:25 02/04/20 25 Allergy Immunotherapy Injections completed CLAIRE GEORGEZEC, RMA [address], [place], [address], [place] [facility] 02/03/2025 13:31:35 01/27/20 25 Allergy Immunotherapy Injections completed CLAIRE KORZEC, RMA [address], [place], [address], [place] [facility] 01/26/2025 17:13:41 01/20/20 25 Allergy Immunotherapy Injections completed CLAIRE KORZEC, RMA [address], [place], [address], [place] [facility] 01/19/2025 17:19:57 01/13/20 25 Allergy Immunotherapy Injections completed CLAIRE SOSA, RMA [address], [place], [address], [place] [facility] 01/12/2025 17:32:38 01/06/20 25 Allergy Immunotherapy Injections completed IBIS ESPINAL RN [address], [address], [place] [facility] 01/05/2025 17:09:45 12/30/19 25 Allergy Immunotherapy Injections completed KIET CHAUDHARI [address], [address], [place] [facility] 12/29/2024 17:12:12 12/16/19 25 Allergy Immunotherapy Injections completed IBIS ESPINAL RN [address] [place] [address], [address], [place] [facility] 12/15/2024 14:49:49 12/08/19 25 Allergy Immunotherapy Injections completed CLAIRE SOSA RMA [address], [address], [place] [facility] 12/08/2024 16:30:46 12/03/19 25 Allergy Immunotherapy Injections completed CLAIRE SOSA RMAndree [address], [address], [place] [facility] 12/03/2024 13:59:00 11/24/19 25 Allergy Immunotherapy Injections completed IBIS ESPINAL RN [address], [address], [place] [facility] 11/24/2024 17:35:28 11/17/19 25 Allergy Immunotherapy Injections completed KIET CHAUDHARI [address], [address], [place] [facility] 11/17/2024 17:19:50 11/10/19 25 Allergy Immunotherapy Injections completed CLAIRE SOSA RMA [address], [place], [address], [place] [facility] 11/10/2024 17:07:40 11/03/19 25 Allergy Immunotherapy Injections completed IBIS ESPINAL RN [address], [address], [place] [facility] 11/03/2024 17:08:28 10/27/19 25 Allergy Immunotherapy Injections completed KIET CHAUDHARI [address], [place], [address], [place] [facility] 10/27/2024 16:14:45 10/20/19 25 Allergy Immunotherapy Injections completed KIET CHAUDHARI [address], [address], [place] [facility] 10/20/2024 17:25:26 10/12/20 24 Allergy Immunotherapy Injections completed KIET CHAUDHARI [address] [place] [address], [address], [place] [facility] 10/12/2024 13:29:28 10/08/20 24 Allergy Immunotherapy Injections completed IBIS ESPINAL RN [address] [facility] [place],[address] [place] [address], [address], [place] [facility] 10/08/2024 11:56:20 09/29/20 24 Allergy Immunotherapy Injections completed IBIS ESPINAL RN [address] [facility] [place],[address] [place] [address], [address], [place] [facility] 09/29/2024 16:45:52 09/22/20 24 Allergy Immunotherapy Injections completed CLAIRE SOSA RMA [address], [address], [place] [facility] 09/22/2024 17:12:52 09/15/20 24 Allergy Immunotherapy Injections completed CLAIRE SOSA, RMA [address], [address], [place] [facility] 09/15/2024 17:12:36 09/07/20 24 Allergy Immunotherapy Injections completed IBIS ESPINAL RN [address], [place], [address], [place] [facility] 09/07/2024 17:08:12 09/01/20 24 Allergy Immunotherapy Injections completed CLAIRE SOSA RMA [address], [place], [address], [place] [facility] 09/01/2024 17:07:01 08/18/20 24 Allergy Immunotherapy Injections completed KIET CHAUDHARI [address], [place], [address], [place] [facility] 08/18/2024 17:22:45 08/04/20 24 Allergy Immunotherapy Injections completed KIET CHAUDHARI [address], [place], [address], [place] [facility] 08/04/2024 17:02:40 07/28/20 24 Allergy Immunotherapy Injections completed KIET CHAUDHARI [address] [facility], [place], [address], [place] [facility] 07/28/2024 17:09:33 07/21/20 24 Allergy Immunotherapy Injections completed KIET CHAUDHARI [address], [place], [address], [place] [facility] 07/21/2024 17:18:18 07/14/20 24 Allergy Immunotherapy Injections completed IBIS ESPINAL RN [address], [place], [address], [place] [facility] 07/14/2024 17:16:17 07/07/20 24 Allergy Immunotherapy Injections completed CLAIRE SOSA RMA [address], [place], [address], [place] [facility] 07/07/2024 17:13:44 06/30/20 24 Allergy Immunotherapy Injections completed KIET CHAUDHARI [address], [place], [address], [place] [facility] 06/30/2024 16:12:40 06/23/20 24 Allergy Immunotherapy Injections completed KIET CHAUDHARI [address], [place], [address], [facility] - [facility] 06/23/2024 17:25:36 06/16/20 24 Allergy Immunotherapy Injections completed KIET CHAUDHARI [address], [place], [address], [facility] 06/16/2024 16:54:40 06/02/20 24 Allergy Immunotherapy Injections completed IBIS ESPINAL RN [address], [place], [address], [facility] 06/02/2024 17:39:20 05/27/20 24 Allergy Immunotherapy Injections completed KIET CHAUDHARI [address], [place], [address], [facility] 05/27/2024 14:44:29 05/20/20 24 Allergy Immunotherapy Injections completed CLAIRE SOSA, RMA [address], [place], [address], [facility] 05/20/2024 15:31:06 05/10/20 24 Allergy Immunotherapy Injections completed CLAIRE SOSA RMA [address] [place] [address], [address], [facility] - [facility] 05/10/2024 15:02:44 02/24/20 24 Allergy Testing-Full completed CLAIRE SOSA RMA [address] [facility] [place],[address], [address], [facility] 02/24/2024 13:45:44 Imaging Results None recorded. Procedure Notes None recorded. Medical Equipment None Reported. Allergies Allergen ID Allergen Name Allergen Category Reaction Reaction Severity Criticality Documentation Date Start Date Code Code System Note Provider Name and Address Organization Details Recorded Time 909922 azithromy rony medicatio n Not available Not available Not available 01/03/2025 26395 RxNorm Amarjit saravia [place] - [facility] 08:41:21 01168 Product containin g penicilli n (product) medicatio n other Not available Not available 02/24/2024 81154 8001 SNOMED React ion: unkno wn, unspe cifie d;; Not Available [facility] 4 00:51:17 Medications Name Sig Start Date Stop Date Status Note LastModified by Organization Details LastModified Time Augmentin 875 mg-125 mg tablet 02/11 completed Medicati on ID: [id number] D uration Value: 10 Prescri bed By Name: Shaquille aguirre MD Brand Name: Augmenti n Send Method: E-Prescr ibed Sub s Allowed: subs OK Speci al Instruct ion: 1 po bid for 10 days Med icationG enericNa me: Augmenti n Not Available Not Available Not Available prednison e 10 mg tablet by mouth 12/11 completed Medicati on ID: [id number] P rescribe d By Name: Shaquille aguirre MD Brand Name: predniso ne Send Method: E-Prescr ibed Sub s Allowed: subs OK Speci al Instruct ion: Take 4 tabs daily for 3 days then 3 tabs daily for 3 days then 2 tabs daily for 3 days then 1 tab daily for 3 days then stop Med icationG enericNa me: predniso ne Not Available Not Available Not Available doxycycli ne hyclate 100 mg capsule by mouth 2019 active Medicati on ID: [id number] D uration Value: 14 Brand Name: doxycycl ine hyclate Send Method: E-Prescr ibed Sub s Allowed: subs OK Speci al Instruct ion: Take 1 po BID X 14 days Med icationG enericNa me: doxycycl ine hyclate Not Available Not Available Not Available clindamyc in HCl 300 mg capsule TAKE 1 CAPSULE BY MOUTH THREE TIMES A DAY FOR 10 DAYS active Not Available Not Available No t Available cetirizin e 10 mg tablet 07/22 completed Medicati on ID: [id number] D uration Value: 30 Reason: () Brand Name: cetirizi ne Send Method: E-Prescr ibed Sub s Allowed: subs OK Speci al Instruct ion: TAKE 1 TABLET BY MOUTH ONCE A DAY Medi cationGe nericNam e: cetirizi ne Not Available Not Available Not Available azithromy rony 250 mg tablet TAKE 2 TABLETS BY MOUTH TODAY, THEN TAKE 1 TABLET DAILY FOR 4 DAYS DIRECTED active Not Available Not Available No t Available fluconazo le 150 mg tablet TAKE 1 TABLET BY MOUTH ONCE REPEAT DOSE IF STILL HAVING SYMPTOMS IN 72 HOURS active Not Available Not Available No t Available valacyclo vir 1 gram tablet 12/11 completed Medicati on ID: [id number] B rand Name: valacycl ovir Sen d Method: E-Prescr ibed Sub s Allowed: subs OK Medic ationGen ericName : valacycl ovir Not Available Not Available Not Available meloxicam 15 mg tablet TAKE 1 TABLET BY MOUTH EVERY DAY active Not Available Not Available No t Available metronida zole 0.75 % (37.5 mg/5 gram) vaginal gel APPLY 1 APPLICAT OR VAGINALL Y DAILY AT BEDTIME, X5 DAYS active Not Available Not Available No t Available prednison e 20 mg tablet 2 tablet by mouth 2019 active Medicati on ID: [id number] D uration Value: 3 Prescri bed By Name: PRECIOUS Cuello nd Name: predniso ne Send Method: E-Prescr ibed Sub s Allowed: subs OK Speci al Instruct ion: 2 tabs daily for 3 days Med icationG enericNa me: predniso ne Not Available Not Available Not Available metronida zole 500 mg tablet 02/11 completed Medicati on ID: [id number] D uration Value: 7 Reason: () Brand Name: metronid azole Se nd Method: E-Prescr ibed Sub s Allowed: subs OK Medic ationGen ericName : metronid azole Not Available Not Available Not Available fexofenad ine 180 mg tablet TAKE 1 TABLET BY MOUTH EVERY DAY 2024 active Not Available Not Available Not Avai lable valacyclo vir 500 mg tablet TAKE 1 TABLET BY MOUTH EVERY DAY active Not Available Not Available No t Available lidocaine -prilocai ne 2.5 %-2.5 % topical cream 2019 active Medicati on ID: [id number] P rescribe d By Name: Doni Dai nd Name: lidocain e-priloc kp [place] Method: E-Prescr ibed Sub s Allowed: subs OK Speci al Instruct ion: Please bring to allergy test appoint Medicati onGeneri cName: lidocain e-priloc kp Not Available Not Available Not Available doxycycli ne monohydra te 100 mg capsule 1 capsule by mouth twice a day 01/29 completed Medicati on ID: [id number] D uration Value: 10 Prescri bed By Name: Shaquille aguirre MD Brand Name: doxycycl ine monohydr ate Send Method: E-Prescr ibed Sub s Allowed: subs OK Medic ationGen ericName : doxycycl ine monohydr ate Not Available Not Available Not Available omeprazol e 20 mg capsule,d elayed release TAKE 1 CAPSULE BY MOUTH EVERY DAY active Not Available Not Available No t Available [address] [facility] 10 mg tablet TAKE 1 TABLET BY MOUTH EVERY DAY IN THE EVENING 2023 active Not Available Not Available Not Avai lable azelastin e 137 mcg (0.1 %) nasal spray USE 2 SPRAYS NASALLY TWICE A DAY DIRECTED active Not Available Not Available No t Available epinephri ne 0.3 mg/0.3 mL injection , auto-inje ctor 1 pen injector intramus cularly 2020 active Medicati on ID: [id number] D uration Value: 1 Brand Name: epinephr chandler Send Method: E-Prescr ibed Sub s Allowed: subs OK Medic ationGen ericName : epinephr ine Not Available Not Available Not Available triamcino lone acetonide 0.1 % lotion APPLY TO. SCALP AT BEDTIME active Not Available Not Available No t Available norethind [place] (contrace ptive) 0.35 mg tablet TAKE 1 TABLET BY MOUTH EVERY DAY active Not Available Not Available No t Available ondansetr on 4 mg disintegr ating tablet TAKE 1 TABLET BY MOUTH THREE TIMES A DAY active Not Available Not Available No t Available fluticaso ne propionat e 50 mcg/actua tion nasal spray,isabel pension USE 2 PUFFS NASALLY ONCE A DAY active Not Available Not Available No t Available dicyclomi ne 10 mg capsule TAKE 1 CAPSULE BY MOUTH THREE TIMES A DAY NEEDED FOR ABDOMINA L CRAMPS active Not Available Not Available No t Available naproxen 500 mg tablet 12/11 completed Medicati on ID: [id number] B rand Name: naproxen Send Method: E-Prescr ibed Sub s Allowed: subs OK Medic ationGen ericName : naproxen Not Available Not Available Not Available Aurelia (28) 3 mg-0.02 mg tablet TAKE 1 TABLET BY MOUTH EVERY DAY active Not Available Not Available No t Available [facility] 1 spray into both nostrils twice a day 2021 active Medicati on ID: [id number] B rand Name: [facility] Send Method: E-Prescr ibed Sub s Allowed: subs OK Medic ationGen ericName : [facility] Not Available Not Available Not Available Vitals None Recorded Social History None recorded. Functional Status None recorded. Mental Status None recorded. Family History Nothing Reported. Medical History No medical history recorded. Gynecological HistoryNo gynecological history recorded. Obstetrics History GPAL:G 0 P 0 0 0 0 Past Encounters Encounter ID Performer Location Encounter Start Date Encounter Closed Date Diagnosis/Indication Diagnosis SNOMED-CT Code Diagnosis ICD10 Code Diagnosis Note [id number] SHAQUILLE BURNETTE MD Allergy [address] [place] [id number] 02/24/2024 13:07:29 02/27/2024 16:28:44 Allergic rhinitis 31794221 J30.89 [id number] SHAQUILLE BURNETTE MD [facility] on [address] [place] [address] 03/12/2024 16:19:10 03/16/2024 15:25:42 Seasonal allergic rhinitis 087015885 J30.2 Given her severe allergies she is a good candidate for immunother apy. I explained that this is instituted for the most significan t of allergies and involves the introducti on of increasing ly graduated dosages of the appropriat e allergens by subcutaneo us injection to facilitate tolerance. I explained about the likelihood of some improvemen t usually within a three to six month time period provided that the patient is compliant with therapy. It may take substantia lly longer for patients with severe allergy. We spoke about the duration of therapy, which typically lasts from three to five years though at times can be indefinite . We also discussed the risk of anaphylaxi s with therapy. Use of an Epipen discussed. She will call when she wants to begin. She already has an epipen. [id number] CLAIRE MANE, RMA Allergy [address] [facility],[address] [place] [address] 05/10/2024 14:31:13 05/10/2024 15:03:26 Perennial allergic rhinitis [id number] J30.89 [id number] DOTTIE MORIN A Allergy [address] [facility],[address] [place] [address] 05/20/2024 15:18:57 05/21/2024 11:02:08 Perennial allergic rhinitis [id number] J30.89 [id number] DOTTIE MORIN A Allergy [address] [facility],[address] [place] [address] 05/27/2024 14:16:38 05/27/2024 15:15:10 Perennial allergic rhinitis [id number] J30.89 [id number] DOTTIE MORIN A Allergy [address] [facility],[address] [place] [address] 06/02/2024 17:06:58 06/02/2024 17:40:30 Perennial allergic rhinitis [id number] J30.89 [id number] DOTTIE MORIN A Allergy [address] [place] [address],[address] [place] [address] 06/16/2024 16:53:55 06/16/2024 17:16:52 Perennial allergic rhinitis [id number] J30.89 [id number] DOTTIE MORIN A Allergy [address] [facility],[address] [place] [address] 06/23/2024 17:09:15 06/23/2024 17:34:01 Perennial allergic rhinitis [id number] J30.89 [id number] CLAIRE MANE, RMA Allergy [address] [facility],[address] [place] [address] 06/30/2024 16:01:28 06/30/2024 17:12:41 Perennial allergic rhinitis [id number] J30.89 [id number] DOTTIE MORIN A Allergy [address] [facility],[address] [place] [address] 07/07/2024 16:51:16 07/07/2024 17:14:11 Perennial allergic rhinitis [id number] J30.89 [id number] DOTTIE MORIN [facility] Allergy [address] [facility],[address] [place] [address] 07/14/2024 16:58:11 07/14/2024 17:16:51 Perennial allergic rhinitis [id number] J30.89 [id number] [facility] Allergy [address] [facility],[address] [place] [address] 07/21/2024 17:00:05 07/21/2024 17:21:59 Perennial allergic rhinitis [id number] J30.89 [id number] DOTTIE MORIN [facility] Allergy [address] [place] [address],[address] [place] [address] 07/28/2024 17:02:26 07/28/2024 17:21:49 Perennial allergic rhinitis [id number] J30.89 [id number] DOTTIE MORIN [facility] Allergy [address] [place] [address],[address] [place] [address] 08/04/2024 16:55:35 08/04/2024 17:03:17 Perennial allergic rhinitis [id number] J30.89 [id number] DOTTIE MORIN [facility] Allergy [address] [place] [address],[address] [place] [address] 08/18/2024 17:13:08 08/18/2024 17:23:18 Perennial allergic rhinitis [id number] J30.89 [id number] DOTTIE MORIN [facility] Allergy [address] [place] [address],[address] [place] [address] 09/01/2024 16:52:46 09/01/2024 17:08:29 Perennial allergic rhinitis [id number] J30.89 [id number] IBIS ESPINAL RN Allergy [address] [place] [address],[address] [place] [address] 09/07/2024 17:06:49 09/07/2024 17:08:40 Perennial allergic rhinitis [id number] J30.89 [id number] DOTTIE MORIN [facility] Allergy [address] [place] [address],[address] [place] [address] 09/15/2024 16:33:06 09/15/2024 17:12:56 Perennial allergic rhinitis [id number] J30.89 [id number] DOTTIE MORIN A Allergy [address] [place] [address],[address] [place] [address] 09/22/2024 16:50:57 09/22/2024 17:13:25 Perennial allergic rhinitis [id number] J30.89 [id number] [facility], A Allergy [address] [place] [address],[address] [place] [address] 09/29/2024 16:40:43 09/29/2024 16:46:25 Perennial allergic rhinitis [id number] J30.89 [id number] IBIS ESPINAL RN Allergy [address] [place] [address],[address] [place] [address] 10/08/2024 11:36:58 10/08/2024 11:56:38 Perennial allergic rhinitis [id number] J30.89 [id number] IBIS ESPINAL RN Allergy [address] [place] [address],[address] [place] [address] 10/12/2024 13:21:38 10/12/2024 13:29:50 Perennial allergic rhinitis [id number] J30.89 [id number] DOTTIE MORIN A Allergy [address] [place] [address],[address] [place] [address] 10/20/2024 17:05:37 10/20/2024 17:26:23 Perennial allergic rhinitis [id number] J30.89 [id number] DOTTIE MORIN A Allergy [address] [place] [address],[address] [place] [address] 10/27/2024 15:44:32 10/27/2024 16:16:43 Perennial allergic rhinitis [id number] J30.89 [id number] [facility], A Allergy [address] [place] [address],[address] [place] [address] 11/03/2024 16:59:47 11/03/2024 17:09:18 Perennial allergic rhinitis [id number] J30.89 [id number] [facility], A Allergy [address] [place] [address],[address] [place] [address] 11/10/2024 16:59:47 11/10/2024 17:08:18 Perennial allergic rhinitis [id number] J30.89 [id number] CLAIRE [facility], [facility] Allergy [address] [place] [address],[address] [place], [place] [address] 11/17/2024 17:08:49 11/17/2024 17:28:54 Perennial allergic rhinitis [id number] J30.89 [id number] DOTTIE MORIN [facility] Allergy [address] [place] [address],[address] [place] [address] 11/24/2024 17:27:05 11/24/2024 17:36:04 Perennial allergic rhinitis [id number] J30.89 [id number] CLAIRE ANTONIETTA, [facility] Allergy [address] [place] [address], [address] [place] [address] 12/03/2024 13:48:06 12/03/2024 13:59:24 Perennial allergic rhinitis [id number] J30.89 [id number] SHAQUILLE BURNETTE MD [facility] [place] [address] [facility] [place] [address] 12/08/2024 15:21:47 12/08/2024 16:08:33 Seasonal allergic rhinitis 146513376 J30.2 The patient is benefiting from immunother apy and should continue. No systemic reactions. [id number] DOTTIE MORIN [facility] Allergy [address] [place] [address], [address] [place] [address] 12/08/2024 16:29:37 12/08/2024 16:31:43 Perennial allergic rhinitis [id number] J30.89 [id number] [facility] Allergy [address] [place] [address],[address] [place] [address] 12/15/2024 14:32:07 12/15/2024 14:50:12 Perennial allergic rhinitis [id number] J30.89 [id number] DOTTIE MORIN [facility] Allergy [address] [place] [address],[address] [place] [address] 12/29/2024 16:53:32 12/29/2024 17:13:44 Perennial allergic rhinitis [id number] J30.89 [id number] IBIS ESPINAL RN Allergy [address] [place] [address],[address] [place] [address] 01/05/2025 17:05:22 01/05/2025 17:10:16 Perennial allergic rhinitis [id number] J30.89 [id number] [facility] Allergy [address] [facility],[address] [place] [address] 01/12/2025 17:07:47 01/12/2025 17:33:13 Perennial allergic rhinitis [id number] J30.89 [id number] IBIS ESPINAL RN Allergy [address] [place] [address],[address] [place] [address] 01/19/2025 17:05:45 01/19/2025 17:20:12 Perennial allergic rhinitis [id number] J30.89 [id number] [facility] Allergy [address] [place] [address],[address] [place] [address] 01/26/2025 16:57:32 01/26/2025 17:14:06 Perennial allergic rhinitis [id number] J30.89 [id number] [facility], A Allergy [address] [place] [address],[address] [place] [address] 02/03/2025 13:24:52 02/03/2025 13:31:56 Perennial allergic rhinitis [id number] J30.89 [id number] IBIS ESPINAL RN Allergy [address] [place] [address],[address] [place] [address] 02/09/2025 16:58:27 02/09/2025 17:14:08 Perennial allergic rhinitis [id number] J30.89 [id number] IBIS ESPINAL RN Allergy [address] [place] [address],[address] [place] [address] 02/16/2025 16:44:12 02/16/2025 16:53:10 Perennial allergic rhinitis [id number] J30.89 [id number] [facility], A Allergy [address] [place] [address],[address] [place] [address] 02/23/2025 14:46:16 02/23/2025 14:54:26 Perennial allergic rhinitis [id number] J30.89 [id number] DOTTIE MIKEL, RMA [facility]ergy [address] [facility] [place] [address] 03/02/2025 17:00:39 03/02/2025 17:24:17 Perennial allergic rhinitis [id number] J30.89 [id number] CLAIRE MANE, RMA Allergy [address] [place] [address] 03/09/2025 17:07:34 03/09/2025 17:15:33 Perennial allergic rhinitis [id number] J30.89 [id number] CLAIRE ANTONIETTA, RMA Allergy [address] [place] [address] 03/16/2025 17:01:20 03/16/2025 17:06:36 Perennial allergic rhinitis [id number] J30.89 [id number] CLAIRE MANE, RMA Allergy [address] [place] [address] 03/23/2025 16:52:57 03/23/2025 16:59:43 Perennial allergic rhinitis [id number] J30.89 [id number] CLAIRE ANTONIETTA, RMA Allergy [address] [place] [address] 04/06/2025 13:34:13 04/06/2025 13:43:31 Perennial allergic rhinitis 613862461 J30.89 Health Concerns Section Related Observation LastModified by Organization Detai ls LastModified Time None Recorded Concern Status LastModified by Organization Details LastModified Time None Recorded Advance Directives Directive None Recorded Payers Insurance Date Sequence Insurance Name Policy Number Policy Blackburn Covered Member ID Blackburn Member ID Guarantor Name 04/06/2025 1 [facility] [id number] Tessie Milner [id number] Tessie Milner 04/29/2024 1 [facility] [id number] Tessie Milner [id number] Tessie Milner OBGyn Episode No OBEpisode recorded.
== END 2025-04-12 16:00 | disposition home or self-care (01) ==
LOC: HO.HSM 15:51
PROVIDERS: PCP Internal Medicine; Visit Provider Psychiatry & Neurology Neurology
DX: R20.2 Paresthesia of skin (principal)
CPT/HCPCS: 99213

== ENCOUNTER 2025-05-02 20:08 | Emergency (ER) | payer BC, SELFPAY ==
--- NOTE | 2025-05-02 | ECG_ITS ---
Test Reason : chest pain Blood Pressure : */* mmHG Vent. Rate : 71 BPM Atrial Rate : 71 BPM P-R Int : 142 ms QRS Dur : 78 ms QT Int : 374 ms P-R-T Axes : 55 63 39 degrees QTcB Int : 406 ms Normal sinus rhythm Normal ECG When compared with ECG of 17-Sep-2021 03:24, No significant change was found Referred By: Generic ED Physician Electronically Signed By: Casey Gross
--- NOTE | ~2025-05-02 | XR_ITS ---
CLINICAL HISTORY: cough, chest EXAM: Two views of the chest. COMPARISON: None FINDINGS: Normal cardiac, mediastinal, and hilar contours. Normal heart size. No pleural effusion or pneumothorax. Lungs are clear. No acute bone finding. IMPRESSION: 1. No acute cardiopulmonary process demonstrated. This document has been electronically signed by: Rubio Conley MD on 05/02/2025 21:07:19
[2025-05-02 20:24] VITALS: BP 116/74; PULSE 78; RESP 18; TEMP 36.6; O2SAT 98; BMI 31.8
--- NOTE | 2025-05-02 20:24 | ED.CHESTPAIN ---
HPI - Chest Pain General Chief Complaint: Chest Pain Stated Complaint: Chest pain / SOB Time Seen by Provider: 05/02/25 23:47 Source: patient Mode of arrival: ambulatory Limitations: no limitations History of Present Illness ED Provider: Dr. Maryanne Arias HPI narrative: Patient comes to the emergency room complaining of 10 hours of mild substernal chest pain. Patient states it is worse with inspiration. Patient states that she went to urgent care today and they sent her to the emergency room. Patient states that she has been having multiple asthma exacerbations . When she went to urgent Care, she was told that she was not wheezing. At this time, patient states that she does feel much better. Patient denies palpitations, denies lower extremity pain or edema/swelling Related Data Home Medications ?Medication ?Instructions ?Recorded ?Confirmed triamcinolone acetonide 0.5 % 1 appl topical BID 05/28/22 04/12/25 topical cream ibuprofen 800 mg tablet 800 mg PO TID PRN pain 05/31/22 04/12/25 montelukast 10 mg tablet 10 mg PO DAILY 05/31/22 04/12/25 azelastine 137 mcg (0.1 %) nasal intranasal 07/16/22 04/12/25 spray fexofenadine 180 mg tablet 180 mg PO DAILY 04/28/24 04/12/25 valacyclovir 500 mg tablet 500 mg PO DAILY 04/28/24 04/12/25 multivitamin 1 tab PO DAILY 04/11/25 04/12/25 norethindrone (contraceptive) 0.35 0.35 mg PO DAILY 04/11/25 04/12/25 mg tablet (Melissa) Previous Rx's ?Medication ?Instructions ?Recorded docusate sodium 100 mg capsule 100 mg PO BEDTIME #90 caps 04/28/24 omeprazole 20 mg capsule,delayed 20 mg PO DAILY #30 caps 04/28/24 release Allergies Allergy/AdvReac Type Severity Reaction Status Date / Time penicillin V Allergy Unknown hives Verified 05/02/25 20:26 amitriptyline AdvReac Intermediate Dizziness Verified 05/02/25 20:26 amoxicillin AdvReac Intermediate Hives Verified 05/02/25 20:26 topiramate (From Topamax) AdvReac Intermediate Confusion Verified 05/02/25 20:26 seasonal allergies Allergy Unknown Unknown Uncoded 05/02/25 20:26 Review of Systems Review of Systems: Constitutional : No Weight loss, No Fever, No Chills, No Night Sweats, No Fatigue, No Malaise ENT/Mouth : No Hearing loss, No Ear Pain, No Nasal Congestion, No Sinus Pain, No Hoarseness, No sore throat, No Rhinorrhea, No Swallowing Difficulty Eyes: No Eye Pain, No Swelling, No Redness, No Foreign Body, No Discharge, No Vision Changes Cardiovascular : Complaining of substernal chest pain with deep inspiration,, No SOB, No Dyspnea on Exertion, No Orthopnea, No Edema, No Palpitations Respiratory : No Cough, No Sputum, No Wheezing, No Smoke Exposure, No Dyspnea Gastrointestinal : No Nausea, No Vomiting, No Diarrhea, No Constipation, No abdominal Pain, No Hematochezia, No Melena Genitourinary : no irregular bleeding, No Dysuria, No Urinary Frequency, No Hematuria, No Urinary Incontinence, No Urgency, No Flank Pain, No Urinary Flow Changes, No Hesitancy Musculoskeletal : No joint pain, No Myalgias, No Joint Swelling Skin : No Skin Lesions, No rash Neuro : No Weakness, No Numbness, No Paresthesias, No Loss of Consciousness, No Dizziness, No Headache Psych : No Anxiety/Panic, No Depression, No SI/HI/AH/VH, No Social Issues, Heme/Lymph: No Bruising, No Bleeding,No Lymphadenopathy Endocrine : No Polyuria, No Polydipsia, No Temperature Intolerance [facility] Past Medical History Medical History Anxiety and depression Recurrent sinusitis Migraine headache Seasonal allergic reaction Surgical History H/O rhinoplasty S/P anal fissurectomy Family History Family History (Updated 04/11/25 @ 18:25 by Krista Child [place]) Mother Arthritis Hypertension Headache Father Headache Social History Social History Household Members: Children Housing: House Alcohol intake: current Alcohol intake frequency: holidays/special occasions only Alcohol type: wine Patient Tobacco Use Status: Never used Tobacco Smoked in Last 30 Days: No Use of substances other than those prescribed or required for medical reasons: No Advance Directives: No Advance Directives Information Provided: Yes Do you have a plan to hurt others: No Plan Patient : No Current occupational status: employed 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 Oriented X3. No acute distress. Eyes: Pupils equal, round and reactive to light. ENT: Pharynx normal. Neck: Normal inspection. Neck supple. No lymph nodes noted. No crepitus CVS: Normal heart rate and rhythm. Pulses normal. Normal S1 and S2 Respiratory: No respiratory distress. Breath sounds normal. No Wheezing. No rales Abdomen: Soft and nontender. No rigidity. No distention. Skin: Skin warm and dry. Normal skin color. Normal skin turgor. Extremities: No lower extremity edema. No Lacerations. No Rash Neuro: Oriented X 3. No motor deficit. No sensory deficit. Moving all extremities. No slurred speech. CN 2 through 12 grossly intact Psych: calm, cooperative, normal affect Vital Signs: Vital Signs: Last Vital Signs Temp 98.2 F 05/03/25 00:22 Pulse 80 05/03/25 00:22 Resp 14 05/03/25 00:22 BP 105/70 05/03/25 00:22 Pulse Ox 96 05/03/25 00:22 O2 Del Method Room Air 05/03/25 00:22 BMI result Body Mass Index 31.8 Course Course Course Narrative: This is an RME performed by Mani Hernandez CNP: Additional HPI, ROS, PE not included below will be deferred to primary provider. Patient is a 34 year old female who presents emergency department for evaluation, sternal chest pain described as a burning sensation, onset 14:00 while working out, has history of similar but lasting for a short duration, but pain now constant since going for a jog today. Used albuterol with no relief, this may be due to her asthma, she presented to an urgent care, was told that she is not having any wheezing. She does admit to SOB with onset this morning when she woke up, dry cough past few days, has seasonal allergies. Plan: ECG, CXR, viral serologies Medical Decision Making Medical Decision Making MDM Narrative: My interpretation of labs: No significant abnormality in patient's hematology chemistry, troponin negative, serology negative My interpretation of EKG: Normal sinus rhythm, heart rate 71, no ST segment depression or elevation, no T-wave inversion, QTC 406 Lab Data 05/02/25 20:56 05/02/25 20:56 Labs: Lab Results 05/02/25 Range/Units 20:56 WBC 9.6 (4.8-10.8) X10*3/uL RBC 4.44 (4.20-5.50) X10*6/uL Hgb 12.8 (12.0-16.0) g/dl Hct 38.7 (37.0-47.0) % MCV 87.2 (80.0-98.0) fL MCH 28.8 (27.0-33.0) pg MCHC 33.1 (31.0-35.0) g/dl RDW 13.2 (11.0-16.0) % Plt Count 262 (160-400) X10*3/uL MPV 9.7 (9.4-12.3) fL Immature Gran % (Auto) 0.2 (0.0-0.4) % Neut % (Auto) 66.2 (45-73) % Lymph % (Auto) 23.9 (20-40) % [place] % (Auto) 6.7 (2-11) % Eos % (Auto) 2.7 (0-4) % Baso % (Auto) 0.3 (0-2) % Lymph # (Auto) 2.3 (1.2-4.9) X10*3/uL [place] # (Auto) 0.6 (0.1-1.2) X10*3/uL Eos # (Auto) 0.3 (0.0-0.4) X10*3/uL Baso # (Auto) 0.0 (0.0-0.2) X10*3/uL Abs Immat Gran (auto) 0.02 (0.00-0.03) X10*3/uL Absolute Neuts (auto) 6.3 (2.0-8.3) x10*3/uL Absolute Nucleated RBC 0.000 (0.0-0.012) X10*3/uL Nucleated RBC % (auto) 0.0 (0.0-0.2) /100WBC Sodium 141 (135-145) mmol/L Potassium 3.6 (3.3-5.1) mmol/L Chloride 110 H (96-108) mmol/L Carbon Dioxide 25 (22-29) mmol/L Anion Gap 10 L (12-20) BUN 13 (9-16) mg/dL Creatinine 0.86 (0.5-1.4) mg/dL Estim Creat Clear Calc 96.6 Estimated GFR > 60 Random Glucose 98 (60-115) mg/dL Calcium 9.0 D (8.4-10.2) mg/dL Total Bilirubin 0.2 (0.0-1.0) mg/dL AST 22 (5-31) U/L ALT 27 (0-31) U/L Alkaline Phosphatase 51 (39-117) U/L Troponin I High Sens < 2.7 (<3.5-17.0) ng/L Total Protein 7.6 (6.5-8.0) g/dL Albumin 4.6 (3.5-5.0) g/dL Influenza Type A (PCR) NEGATIVE (Negative) Influenza Type B (PCR) NEGATIVE (Negative) RSV RNA Qual (PCR) NEGATIVE (Negative) SARS-CoV-2 RNA (RT-PCR) NEGATIVE (Negative) Discharge Plan Discharge Clinical Impression: Pleurisy Patient Disposition: Home, Self-Care Instructions: Pleurisy (ED) Additional Instructions: Please follow-up with your primary care physician tomorrow. If you have any worsening or new symptoms, please return to the emergency room or call 911 Prescriptions: No Action azelastine 137 mcg (0.1 %) aerosol,spray intranasal triamcinolone acetonide 0.5 % cream 1 appl topical BID montelukast 10 mg tablet 10 mg PO DAILY ibuprofen 800 mg tablet 800 mg PO TID PRN (Reason: pain) valacyclovir 500 mg tablet 500 mg PO DAILY fexofenadine 180 mg tablet 180 mg PO DAILY docusate sodium 100 mg capsule 100 mg PO BEDTIME Qty: 90 3RF omeprazole 20 mg capsule,delayed release(DR/EC) 20 mg PO DAILY Qty: 30 3RF multivitamin Tablet 1 tab PO DAILY norethindrone (contraceptive) [Melissa] 0.35 mg tablet 0.35 mg PO DAILY Interventions: ED Discharge Assessment Last Done: 05/03/25 00:22 Discharge Date/Time: 05/03/25 00:35 Print Language: Kazakh
[2025-05-02 21:07] LABS: MANUAL DIFF FLAG NO
[2025-05-02 21:08] LABS: Hematocrit 38.7 % (37.0-47.0); Hemoglobin 12.8 g/dl (12.0-16.0); Imm Gran Abs Auto 0.02 X10*3/uL (0.00-0.03); Imm Gran Pct Auto 0.2 % (0.0-0.4); Lymphocytes Absolute Auto 2.3 X10*3/uL (1.2-4.9); Mean Corpuscular HGB Conc 33.1 g/dl (31.0-35.0); Mean Corpuscular Hemoglobin 28.8 pg (27.0-33.0); Mean Corpuscular Volume 87.2 fL (80.0-98.0); NRBC Abs Auto 0.000 X10*3/uL (0.0-0.012); NRBC Pct Auto 0.0 /100WBC (0.0-0.2); Platelet Count 262 X10*3/uL (160-400); Red Blood Count 4.44 X10*6/uL (4.20-5.50); White Blood Count 9.6 X10*3/uL (4.8-10.8)
[2025-05-02 21:21] LABS: Alanine Aminotransferase 27 U/L (0-31); Albumin Level 4.6 g/dL (3.5-5.0); Alkaline Phosphatase 51 U/L (39-117); Anion Gap 10 (12-20); Aspartate Amino Transferase 22 U/L (5-31); Blood Urea Nitrogen 13 mg/dL (9-16); Calcium 9.0 mg/dL (8.4-10.2); Carbon Dioxide 25 mmol/L (22-29); Chloride 110 mmol/L (96-108); Creatinine Clr Calc Pharmacy 96.6; Estimated Glomerular Filt Rate > 60; Potassium 3.6 mmol/L (3.3-5.1); Sodium 141 mmol/L (135-145); Total Protein 7.6 g/dL (6.5-8.0)
[2025-05-02 21:29] LABS: Troponin-I High Sensitivity < 2.7 ng/L (<3.5-17.0)
[2025-05-02 21:44] LABS: Resp Syncy Virus RNA Qual PCR NEGATIVE (Negative); SARS COV2 PCR INHOUSE NEGATIVE (Negative)
--- OUTSIDE RECORDS SUMMARY | 2025-05-02 23:30 | XMS_ITS | Patient Health Record ---
Author Organization [facility] Address [address] [place] [address] Care Team Providers Care Material Control Analyst Name Role Phone BENNY MONROE, CRIS Primary Care Provider KAYLI Herrera Unavailable [phone] Allergies Allergen (clinical drug ingredient) Drug/Non Drug [...] Risk Notes Problem Moderate recurrent major depression (82787375) Major depressive disorder, recurrent, moderate (F33.1) Active confirmed Problem Anxiety disorder (078864770) Anxiety disorder, unspecified (F41.9) Active confirmed Problem Amenorrhea (10988838) Amenorrhea, unspecified (N91.2) Active confirmed Problem Irregular menstruation (98365150) Irregular menstruation, unspecified (N92.6) Active confirmed Problem Female infertility (0437818) Female infertility, unspecified (N97.9) Active confirmed Plan [...] Insured Coverage Start Date Coverage End Date [facility] [address] [place] [address] [id number] LI Self - patient is the [...]
--- OUTSIDE RECORDS SUMMARY | 2025-05-02 23:30 | XMS_ITS | Data Portability ---
Author Organization [place] [facility], Allergy Address [address] [address] Care Team Providers Care Central Supply Aide Name Role Phone CRIS ZAPATA Primary Care Provider [phone] Assessment Encounter Date Assessment Date Assessment LastModified by Organization Details LastModified Time 03/23/2025 03/23/2025 Visit With: KIET Maldonado Use of Antihistamine s: Yes If yes: Vial Test Change in medications: No If yes Increase in asthma symptoms If yes, inhaler use: Reaction to last injections: No If yes: Allergy Symptoms: Other: Missed: Dose Aware of Vial Test Aware: Notes: [email or web address] Not available 03/23/2025 16:59:10 04/06/2025 04/06/2025 Visit With: KIET Maldonado Use of Antihistamine s: No If yes: Vial Test Change in medications: No If yes Increase in asthma symptoms If yes, inhaler use: Reaction to last injections: No If yes: Allergy Symptoms: Other: Missed: Dose Aware of Vial Test Yes Aware: Notes: [email or web address] Not available 04/06/2025 13:43:01 04/13/2025 04/13/2025 Visit With: KIET Maldonado Use of Antihistamine s: No If yes: Vial Test Yes Change in medications: No If yes Increase in asthma symptoms If yes, inhaler use: Reaction to last injections: No If yes: Allergy Symptoms: Other: Missed: Dose Aware of Vial Test Aware: Notes: [email or web address] Not available 04/13/2025 17:15:26 04/20/2025 04/20/2025 Visit With: Dottie Child Use of Antihistamine s: Yes If yes: Vial Test Change in medications: No If yes Increase in asthma symptoms If yes, inhaler use: Reaction to last injections: No If yes: Allergy Symptoms: Other: Missed: Dose Aware of Vial Test Aware: Notes: [email or web address] Not available 04/20/2025 11:41:55 04/27/2025 04/27/2025 Visit With: Dottie Child Use of Antihistamine s: Yes If yes: Vial Test Change in medications: No If yes Increase in asthma symptoms If yes, inhaler use: Reaction to last injections: No If yes: Allergy Symptoms: Other: Missed: Dose Aware of Vial Test Aware: Notes: [email or web address] Not available 04/27/2025 14:17:19 Plan of Treatment Reminders Order Date Submit Date Provider Last Modified By Organization Details Last Modified Time Details Appointments [facility]- Allergy f-up 6mon 2024 02:00P M SHAQUILLE [...] Name and Address Organization Details Recorded Time Chronic sinusitis 98726565 Active 2016 Chronic sinusitis , unspecifi ed; Note: Date Diagnosed : 12/19/2016 4:02 PM (J32.9) Not Available [facility] 4 02:15:22 Headache 62800303 Active 2016 Headache, unspecifi ed; Note: Changed from R51 to R51.9 ( 2 2:13 PM) , Date Diagnosed : 01/09/2017 4:01 PM (R51) Not Available [facility] 4 02:15:51 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 Active 2016 Atypical facial pain; Note: Changed from R51 to G50.1 ( 2 2:14 PM) , Date Diagnosed : 01/09/2017 4:06 PM (R51) Not Available [facility] 4 02:15:46 Pain of right temporoma ndibular joint [id number] Active 2016 Arthralgi a of right temporoma ndibular joint; Note: Date Diagnosed : 03/21/2017 3:41 PM (M26.621) Not Available [facility] 4 02:15:40 Otalgia of right ear 0552921378 Active 2016 Otalgia, right ear; Note: Date Diagnosed : 03/21/2017 3:41 PM (H92.01) Not Available [facility] 4 02:15:12 Snoring 85871686 Active 2016 Snoring; Note: Date Diagnosed : 7 2:03 PM (R06.83) Not Available [facility] 4 02:15:52 Mouth breathing 69486540 Active 2016 Mouth breathing ; Note: Date Diagnosed : 7 2:03 PM (R06.5) Not Available [facility] 4 02:15:39 Hypertrop hy of nasal turbinate s 09827143 Active 2016 Hypertrop hy of nasal turbinate s; Note: Date Diagnosed : 7 2:14 PM (J34.3) Not Available [facility] 4 02:16:04 Follow-up visit Active 2017 Encounter for follow-up examinati on after completed treatment for condition s other than malignant neoplasm; Note: Date Diagnosed : 11/10/2017 10:08 AM (Z09) Not Available [facility] 4 02:15:57 Nasal congestio n 79404735 Active 2017 Nasal congestio n; Note: Date Diagnosed : 12/30/2017 4:34 PM (R09.81) Not Available [facility] 4 02:15:12 Abnormal auditory perceptio n 19900941 Active 2017 Other abnormal auditory perceptio ns, bilateral ; Note: Date Diagnosed : 8 4:14 PM (H93.293) Not Available [facility] 4 02:15:57 Posterior rhinorrhe a 19841935 Active 2018 Postnasal drip; Note: Date Diagnosed : 03/31/2019 4:31 PM (R09.82) Not Available [facility] 4 02:15:16 Gastroeso phageal reflux disease without esophagit is 700086964 Active 2018 Gastro-es ophageal reflux disease without esophagit is; Note: Date Diagnosed : 03/31/2019 4:43 PM (K21.9) Not Available [facility] 4 02:15:12 Allergic rhinitis 05533049 Active 2020 Allergic rhinitis: Due to other [...] Allergi c Rhinitis; Note: Date Diagnosed : 9 3:49 PM (477.9) Note: Date Diagnosed : 9 3:49 PM (477.9) ; Start Date : Allergi c rhinitis: Due to other allergen; Note: Date Diagnosed : 9 4:23 PM (477.8) Note: Date Diagnosed : 9 4:23 PM (477.8) ; Start Date : Allergi [...] ; Start Date : 7 Not Available [facility] 4 00:52:07 Dysphonia 01084911 Active 2020 Hoarsenes s; Note: Date Diagnosed : 07/09/2021 2:59 PM (R49.0) Hoarsen ess; Note: Date Diagnosed : 03/31/2019 4:43 PM (R49.0) ; Start Date : 9 Not Available [facility] 4 02:15:25 Mild intermitt ent asthma 800323449 Active 2021 Mild intermitt ent asthma NOS; Note: Date Diagnosed : 02/28/2022 5:07 PM (J45.20) Not Available [facility] 4 02:15:46 Acute maxillary sinusitis 87738185 Active 2022 Acute recurrent maxillary sinusitis ; Note: Date Diagnosed : 05/30/2023 3:36 PM (J01.01) Not Available [facility] 4 02:15:07 Seasonal allergic rhinitis 750292530 Active 2023 SHAQUILLE BURNETTE MD [address] [place] [address], [address] , [facility] - [facility] 4 18:35:17 Perennial allergic rhinitis 353215438 Active [address], [address] , [facility] [place] 4 15:02:07 Problem Notes None recorded. Procedures Surgical History Date Name Laterality Status Provider Name and Address Organization Details Recorded Time 04/27/20 25 Allergy Immunotherapy Injections completed KIET CHAUDHARI [address], [address], [facility] - [facility] [place] 04/27/2025 14:17:05 04/20/20 25 Allergy Immunotherapy Injections completed DOTTIE MIKEL, RMA [address], [place], [address], [place] [facility] [place] 04/20/2025 11:41:35 04/13/20 25 Allergy Immunotherapy Injections completed CLAIRE ANTONIETTAC, RMA [address], [place], [address], [place] [facility] [place] 04/13/2025 17:15:16 04/06/20 25 Allergy Immunotherapy Injections completed CLAIRE KORZEC, RMA [address], [place], [address], [place] [facility] [place] 04/06/2025 13:42:54 03/23/20 25 Allergy Immunotherapy Injections completed CLAIRE MANEC, RMA [address], [place], [address], [place] [facility] [place] 03/23/2025 16:59:05 03/16/20 25 Allergy Immunotherapy Injections completed CLAIRE MANEC, RMA [address], [place], [address], [place] [facility] [place] 03/16/2025 17:06:14 03/09/20 25 Allergy Immunotherapy Injections completed DOTTIE CHILD RMA [address], [address], [place] [facility] [place] 03/09/2025 17:14:04 03/02/20 25 Allergy Immunotherapy Injections completed CLAIRE SOSA, RMA [address], [place], [address], [place] [facility] [place] 03/02/2025 17:23:26 02/24/20 25 Allergy Immunotherapy Injections completed CLAIRE KORZEC, RMA [address], [place], [address], [place] [facility] [place] 02/23/2025 14:54:03 02/17/20 25 Allergy Immunotherapy Injections completed CLAIRE MANEC, RMA [address], [place], [address], [place] [facility] [place] 02/16/2025 16:52:34 02/10/20 25 Allergy Immunotherapy Injections completed DOTTIE CHILD RMA [address], [place], [address], [place] [facility] [place] 02/09/2025 17:08:25 02/04/20 25 Allergy Immunotherapy Injections completed CLAIRE SOSA, RMA [address], [place], [address], [place] [facility] [place] 02/03/2025 13:31:35 01/27/20 25 Allergy Immunotherapy Injections completed CLAIRE MANEC, RMA [address], [place], [address], [place] [facility] [place] 01/26/2025 17:13:41 01/20/20 25 Allergy Immunotherapy Injections completed CLAIRE MANEC, RMA [address], [place], [address], [place] [facility] [place] 01/19/2025 17:19:57 01/13/20 25 Allergy Immunotherapy Injections completed CLAIRE SOSA, RMA [address], [place], [address], [place] [facility] [place] 01/12/2025 17:32:38 01/06/20 25 Allergy Immunotherapy Injections completed IBIS ESPINAL RN [address], [address], [place] [facility] [place] 01/05/2025 17:09:45 12/30/19 25 Allergy Immunotherapy Injections completed KIET CHAUDHARI [address], [place], [address], [place] [facility] [place] 12/29/2024 17:12:12 12/16/19 25 Allergy Immunotherapy Injections completed IBIS ESPINAL RN [address], [place], [address], [place] [facility] [place] 12/15/2024 14:49:49 12/08/19 25 Allergy Immunotherapy Injections completed CLAIRE SOSA, RMA [address], [place], [address], [place] [facility] [place] 12/08/2024 16:30:46 12/03/19 25 Allergy Immunotherapy Injections completed CLAIRE SOSA, RMA [address], [place], [address], [place] [facility] [place] 12/03/2024 13:59:00 11/24/19 25 Allergy Immunotherapy Injections completed IBIS ESPINAL RN [address], [place], [address], [place] [facility] [place] 11/24/2024 17:35:28 11/17/19 25 Allergy Immunotherapy Injections completed KIET CHAUDHARI [address], [place], [address], [place] [facility] [place] 11/17/2024 17:19:50 11/10/19 25 Allergy Immunotherapy Injections completed CLAIRE SOSA, RMAndree [address], [place], [address], [place] [facility] [place] 11/10/2024 17:07:40 11/03/19 25 Allergy Immunotherapy Injections completed IBIS ESPINAL RN [address] [place] [address], [address], [place] [facility] [place] 11/03/2024 17:08:28 10/27/19 25 Allergy Immunotherapy Injections completed KIET CHAUDHARI [address], [address], [place] [facility] [place] 10/27/2024 16:14:45 10/20/19 25 Allergy Immunotherapy Injections completed KIET CHAUDHARI [address], [address], [place] [facility] [place] 10/20/2024 17:25:26 10/12/20 24 Allergy Immunotherapy Injections completed KIET CHAUDHARI [address], [address], [place] [facility] [place] 10/12/2024 13:29:28 10/08/20 24 Allergy Immunotherapy Injections completed IBIS ESPINAL RN [address], [place], [address], [place] [facility] [place] 10/08/2024 11:56:20 09/29/20 24 Allergy Immunotherapy Injections completed IBIS ESPINAL RN [address], [place], [address], [place] [facility] [place] 09/29/2024 16:45:52 09/22/20 24 Allergy Immunotherapy Injections completed CLAIRE SOSA, RMA [address], [place], [address], [place] [facility] [place] 09/22/2024 17:12:52 09/15/20 24 Allergy Immunotherapy Injections completed CLAIRE SOSA, RMA [address], [place], [address], [place] [facility] [place] 09/15/2024 17:12:36 09/07/20 24 Allergy Immunotherapy Injections completed IBIS ESPINAL RN [address], [place], [address], [place] [facility] [place] 09/07/2024 17:08:12 09/01/20 24 Allergy Immunotherapy Injections completed CLAIRE SOSA RMA [address], [place], [address], [place] [facility] 09/01/2024 17:07:01 08/18/20 24 Allergy Immunotherapy Injections completed KIET CHAUDHARI [address], [place], [address], [place] [facility] [place] 08/18/2024 17:22:45 08/04/20 24 Allergy Immunotherapy Injections completed KIET CHAUDHARI [address], [place], [address], [place] [facility] [place] 08/04/2024 17:02:40 07/28/20 24 Allergy Immunotherapy Injections completed KIET CHAUDHARI [address], [place], [address], [place] [facility] [place] 07/28/2024 17:09:33 07/21/20 24 Allergy Immunotherapy Injections completed KIET CHAUDHARI [address], [place], [address], [place] [facility] [place] 07/21/2024 17:18:18 07/14/20 24 Allergy Immunotherapy Injections completed IBIS ESPINAL RN [address], [place], [address], [place] [facility] [place] 07/14/2024 17:16:17 07/07/20 24 Allergy Immunotherapy Injections completed CLAIRE SOSA RMA [address], [place], [address], [place] [facility] [place] 07/07/2024 17:13:44 06/30/20 24 Allergy Immunotherapy Injections completed KIET CHAUDHARI [address], [place], [address], [place] [facility] [place] 06/30/2024 16:12:40 06/23/20 24 Allergy Immunotherapy Injections completed KIET CHAUDHARI [address], [address], [place] [facility] [place] 06/23/2024 17:25:36 06/16/20 24 Allergy Immunotherapy Injections completed KIET CHAUDHARI [address], [place], [address], [place] [facility] [place] 06/16/2024 16:54:40 06/02/20 24 Allergy Immunotherapy Injections completed IBIS ESPINAL RN [address] [place] [address], [address], [place] [facility] [place] 06/02/2024 17:39:20 05/27/20 24 Allergy Immunotherapy Injections completed KIET CHAUDHARI [address], [place], [address], [place] [facility] [place] 05/27/2024 14:44:29 05/20/20 24 Allergy Immunotherapy Injections completed CLAIRE SOSA RMA [address], [address], [place] [facility] [place] 05/20/2024 15:31:06 05/10/20 24 Allergy Immunotherapy Injections completed CLAIRE SOSA RMA [address], [place], [address], [place] [facility] [place] 05/10/2024 15:02:44 02/24/20 Allergy Testing-Full completed [facility], [facility] 100 [facility],[place] [address], [place], [address], [place] [facility] 02/24/2024 13:45:44 Imaging Results None recorded. Procedure Notes None recorded. Medical Equipment None Reported. Allergies Allergen ID Allergen Name Allergen Category Reaction Reaction Severity Criticality Documentation Date Start Date Code Code System Note Provider Name and Address Organization Details Recorded Time 595017 azithromy rony medicatio n Not available Not available Not available 01/03/2025 70897 RxNorm Amarjit saravia [place] - [facility] 5 08:41:21 63421 Product containin g penicilli n (product) medicatio n other Not available Not available 02/24/2024 80829 8001 SNOMED React ion: unkno wn, unspe cifie d;; Not Available [facility] 4 00:51:17 Medications Name Sig Start Date Stop Date Status Note LastModified by Organization Details LastModified Time Augmentin 875 mg-125 mg tablet 02/11 completed Medicati on ID: [id number] D uration Value: 10 Prescri bed By Name: Shaquille aguirre MD Brand Name: Augmenti n Send Method: E-Prescr ibed Sub s Allowed: subs OK Speci al Instruct ion: 1 po bid for 10 days Med icationG enericNa me: Augmenti n Not Available Not Available Not Available prednison e 10 mg tablet by mouth 12/11 completed Medicati on ID: [id number] P rescribe d By Name: Shaquille aguirre [...] by mouth 2019 active Medicati on ID: [id number] D uration Value: 14 Brand Name: doxycycl [...] mg tablet 07/22 completed Medicati on ID: [id number] D uration Value: 30 Reason: () Brand [...] gram tablet 12/11 completed Medicati on ID: [id number] B rand Name: valacycl ovir Sen d [...] by mouth 2019 active Medicati on ID: [id number] D uration Value: 3 Prescri bed By Name: PRECIOUS Cuello nd Name: predniso ne Send Method: E-Prescr ibed Sub s Allowed: subs OK Speci al Instruct ion: 2 tabs daily for 3 days Med icationG enericNa me: predniso ne Not Available Not Available Not Available metronida zole 500 mg tablet 02/11 completed Medicati on ID: [id number] D uration Value: 7 Reason: () Brand [...] topical cream 2019 active Medicati on ID: [id number] P rescribe d By Name: Junior Sorensen M.D. Bra nd Name: lidocain e-priloc kp Sen d Method: E-Prescr ibed Sub s Allowed: subs OK Speci al Instruct ion: Please bring to allergy test appoint Medicati onGeneri cName: lidocain e-priloc kp Not Available Not Available Not Available doxycycli ne monohydra te 100 mg capsule 1 capsule by mouth twice a day 01/29 completed Medicati on ID: [id number] D uration Value: 10 Prescri bed By [...] intramus cularly 2020 active Medicati on ID: [id number] D uration Value: 1 Brand Name: epinephr ine Send Method: E-Prescr ibed Sub s Allowed: [...] mg tablet 12/11 completed Medicati on ID: [id number] B rand Name: naproxen Send Method: E-Prescr ibed Sub s Allowed: subs OK Medic ationGen ericName : naproxen Not Available Not Available Not Available Aurelia (28) 3 mg-0.02 mg tablet TAKE 1 TABLET BY MOUTH EVERY DAY active Not Available Not Available No t Available [facility] [place] 1 spray into both nostrils twice a day 2021 active Medicati on ID: [id number] B rand Name: [facility] Send Method: [...] Diagnosis Note 195 SHAQUILLE BURNETTE MD Allergy 100 [facility] it [address] [place] [address] 02/24/2024 13:07:29 02/27/2024 16:28:44 Allergic rhinitis 04315774 J30.89 [id number] SHAQUILLE BURNETTE MD [facility] on [address] [place] [address] 03/12/2024 16:19:10 03/16/2024 15:25:42 Seasonal allergic rhinitis 164209153 J30.2 Given her severe allergies she is [...] already has an epipen. 9992 CLAIRE MANE, [facility] Allergy [address] [place] [address],[place] [address] [facility] [address] 05/10/2024 14:31:13 05/10/2024 15:03:26 Perennial allergic rhinitis [id number] J30.89 [id number] DOTTIE CHILD [facility] Allergy [address] [place] [address],[place] [address] [facility] [place] [address] 05/20/2024 15:18:57 05/21/2024 11:02:08 Perennial allergic rhinitis 756000306 J30.89 [id number] DOTTIE CHILD [facility] Allergy [address] [place] [address],[place] [address] [facility] [address] 05/27/2024 14:16:38 05/27/2024 15:15:10 Perennial allergic rhinitis [id number] J30.89 [id number] DOTTIE CHILD [facility] Allergy [address] [place] [address],[place] [place] [address] 06/02/2024 17:06:58 06/02/2024 17:40:30 Perennial allergic rhinitis [id number] J30.89 [id number] DOTTIE CHILD [facility] Allergy [address] [place] [address],[place] [address] [facility] [address] 06/16/2024 16:53:55 06/16/2024 17:16:52 Perennial allergic rhinitis 289787775 J30.89 [id number] DOTTIE CHILD RMA Allergy 100 [facility],[address] [place] [address] 06/23/2024 17:09:15 06/23/2024 17:34:01 Perennial allergic rhinitis [id number] J30.89 [id number] [facility], R[facility] [address] [facility] [place] [place] [address] 06/30/2024 16:01:28 06/30/2024 17:12:41 Perennial allergic rhinitis [id number] J30.89 [id number] DOTTIE CHILD RMA Allergy 100 [facility],[address] [place] [address] 07/07/2024 16:51:16 07/07/2024 17:14:11 Perennial allergic rhinitis [id number] J30.89 [id number] DOTTIE CHILD A Allergy 100 [facility],[address] [place] [address] 07/14/2024 16:58:11 07/14/2024 17:16:51 Perennial allergic rhinitis [id number] J30.89 [id number] KIT [facility], RMA Allergy 100 [facility],[address] [place] [address] 07/21/2024 17:00:05 07/21/2024 17:21:59 Perennial allergic rhinitis [id number] J30.89 [id number] DOTTIE CHILD A Allergy 100 [facility],[address] [place] [address] 07/28/2024 17:02:26 07/28/2024 17:21:49 Perennial allergic rhinitis [id number] J30.89 [id number] DOTTIE CHILD RMA Allergy 100 [facility],[address] [place] [address] 08/04/2024 16:55:35 08/04/2024 17:03:17 Perennial allergic rhinitis [id number] J30.89 [id number] DOTTIE CHILD RMA [facility]ergy [address] [facility] [place],[address] [place] [address] 08/18/2024 17:13:08 08/18/2024 17:23:18 Perennial allergic rhinitis [id number] J30.89 [id number] DOTTIE CHILD, [facility] Allergy 100 [facility],[address] [place] [address] 09/01/2024 16:52:46 09/01/2024 17:08:29 Perennial allergic rhinitis [id number] J30.89 [id number] IBIS ESPINAL RN Allergy [address] [place] [address],[address] [place] [address] 09/07/2024 17:06:49 09/07/2024 17:08:40 Perennial allergic rhinitis [id number] J30.89 [id number] DOTTIE CHILD, [facility] Allergy [address] [place] [address],[address] [place] [address] 09/15/2024 16:33:06 09/15/2024 17:12:56 Perennial allergic rhinitis [id number] J30.89 [id number] DOTTIE CHILD, [facility] Allergy [address] [place] [address],[address] [place] [address] 09/22/2024 16:50:57 09/22/2024 17:13:25 Perennial allergic rhinitis [id number] J30.89 [id number] CLAIRE MANE, [facility] Allergy [address] [place] [address],[address] [place] [address] 09/29/2024 16:40:43 09/29/2024 16:46:25 Perennial allergic rhinitis [id number] J30.89 [id number] IBIS ESPINAL RN Allergy [address] [place] [address],[address] [place] [address] 10/08/2024 11:36:58 10/08/2024 11:56:38 Perennial allergic rhinitis [id number] J30.89 [id number] IBIS ESPINAL RN Allergy [address] [place] [address],[address] [place] [address] 10/12/2024 13:21:38 10/12/2024 13:29:50 Perennial allergic rhinitis [id number] J30.89 [id number] DOTTIE CHILD, [facility] Allergy 100 [facility],[address] [place] [address] 10/20/2024 17:05:37 10/20/2024 17:26:23 Perennial allergic rhinitis [id number] J30.89 [id number] DOTTIE CHILD RMA Allergy 100 [facility],[address] [place] [address] 10/27/2024 15:44:32 10/27/2024 16:16:43 Perennial allergic rhinitis [id number] J30.89 [id number] [facility] [place] [place] [address] 11/03/2024 16:59:47 11/03/2024 17:09:18 Perennial allergic rhinitis [id number] J30.89 [id number] [facility] [place],[address] [place] [address] 11/10/2024 16:59:47 11/10/2024 17:08:18 Perennial allergic rhinitis [id number] J30.89 [id number] [facility], [facility] Allergy 100 [facility],[address] [place] [address] 11/17/2024 17:08:49 11/17/2024 17:28:54 Perennial allergic rhinitis [id number] J30.89 [id number] DOTTIE CHILD A Allergy 100 [facility],[address] [place] [address] 11/24/2024 17:27:05 11/24/2024 17:36:04 Perennial allergic rhinitis [id number] J30.89 25694 [facility], A Allergy 100 [facility],[address] [place] [address] 12/03/2024 13:48:06 12/03/2024 13:59:24 Perennial allergic rhinitis [id number] J30.89 [id number] SHAQUILLE BURNETTE MD [facility] [place] [address] [facility] [place] [address] 12/08/2024 15:21:47 12/08/2024 16:08:33 Seasonal allergic rhinitis [id number] J30.2 The patient is benefiting from immunother apy and should continue. No systemic reactions. 52412 DOTTIE CHILD RMA Allergy 100 [facility],[address] [place] [address] 12/08/2024 16:29:37 12/08/2024 16:31:43 Perennial allergic rhinitis [id number] J30.89 15052 [facility], A Allergy [address] [place] [address],[address] [place] [address] 12/15/2024 14:32:07 12/15/2024 14:50:12 Perennial allergic rhinitis [id number] J30.89 87149 DOTTIE MIKEL, [facility] Allergy [address] [place] [address],[address] [place] [address] 12/29/2024 16:53:32 12/29/2024 17:13:44 Perennial allergic rhinitis [id number] J30.89 84176 IBIS ESPINAL RN Allergy [address] [place] [address],[address] [place] [address] 01/05/2025 17:05:22 01/05/2025 17:10:16 Perennial allergic rhinitis [id number] J30.89 [id number] [facility], A Allergy [address] [place] [address],[address] [place] [address] 01/12/2025 17:07:47 01/12/2025 17:33:13 Perennial allergic rhinitis [id number] J30.89 21914 IBIS ESPINAL RN Allergy [address] [place] [address],[address] [place] [address] 01/19/2025 17:05:45 01/19/2025 17:20:12 Perennial allergic rhinitis [id number] J30.89 [id number] [facility], A Allergy [address] [place] [address],[address] [place] [address] 01/26/2025 16:57:32 01/26/2025 17:14:06 Perennial allergic rhinitis [id number] J30.89 20367 [facility], A Allergy [address] [place] [address],[address] [place] [address] 02/03/2025 13:24:52 02/03/2025 13:31:56 Perennial allergic rhinitis [id number] J30.89 07292 IBIS ESPINAL RN Allergy [address] [place] [address],[address] [place] [address] 02/09/2025 16:58:27 02/09/2025 17:14:08 Perennial allergic rhinitis [id number] J30.89 31514 IBIS ESPINAL, [employer] [address] [place] [address],[address] [place] [address] 02/16/2025 16:44:12 02/16/2025 16:53:10 Perennial allergic rhinitis [id number] J30.89 50041 [facility] [place], [facility] Allergy [address] [place] [address], [address] [place] [address] 02/23/2025 14:46:16 02/23/2025 14:54:26 Perennial allergic rhinitis [id number] J30.89 94370 DOTTIE CHILD, [facility] Allergy [address] [place] [address], [address] [place] [address] 03/02/2025 17:00:39 03/02/2025 17:24:17 Perennial allergic rhinitis [id number] J30.89 61655 [facility] Allergy [address] [place] [address], [address] [place] [address] 03/09/2025 17:07:34 03/09/2025 17:15:33 Perennial allergic rhinitis [id number] J30.89 34865 [facility], [facility] Allergy [address] [place] [address], [address] [place] [address] 03/16/2025 17:01:20 03/16/2025 17:06:36 Perennial allergic rhinitis [id number] J30.89 22886 [facility], [facility] Allergy [address] [place] [address],[address] [place] [address] 03/23/2025 16:52:57 03/23/2025 16:59:43 Perennial allergic rhinitis [id number] J30.89 [id number] [facility] Allergy [address] [place] [address],[address] [place] [address] 04/06/2025 13:34:13 04/06/2025 13:43:31 Perennial allergic rhinitis [id number] J30.89 35661 [facility] Allergy [address] [place] [address],[address] [place] [address] 04/13/2025 16:56:54 04/13/2025 17:15:51 Perennial allergic rhinitis [id number] J30.89 35636 DOTTIE CHILD [facility] Allergy 100 [facility],[address] [place] [address] 04/20/2025 11:34:52 04/20/2025 11:42:36 Perennial allergic rhinitis [id number] J30.89 42799 DOTTIE CHILD [facility] Allergy 100 [facility], [address] [place] [address] 04/27/2025 14:09:11 04/27/2025 14:17:38 Perennial allergic rhinitis [id number] J30.89 Health Concerns Section Related Observation LastModified by Organization Detai ls LastModified Time None Recorded Concern Status LastModified by Organization Details LastModified Time None Recorded Advance Directives Directive None Recorded Payers Insurance Date Sequence Insurance Name Policy Number Policy Blackburn Covered Member ID Blackburn Member ID Guarantor Name 04/27/2025 1 [facility] [id number] Tessie Frias [id number] Tessie Frias 04/29/2024 1 [facility] [id number] Tessie Frias [id number] Tessie Frias OBGyn Episode No OBEpisode recorded.
[2025-05-02 23:31] VITALS: BP 101/61; PULSE 61; RESP 15; TEMP 36.7; O2SAT 98
[2025-05-03 00:19] VITALS: PULSE 71
[2025-05-03 00:22] VITALS: BP 105/70; PULSE 80; RESP 14; TEMP 36.8; O2SAT 96
== END 2025-05-03 00:35 | disposition home or self-care (01) ==
PROVIDERS: Nurse Practitioner Family; Emergency Provider Emergency Medicine; PCP Internal Medicine
DX: R09.1 Pleurisy (principal); R06.02 Shortness of breath; R05.9 Cough, unspecified; Z03.818 Encounter for observation for suspected exposure to other biological agents ruled out; J45.909 Unspecified asthma, uncomplicated
CPT/HCPCS: 71046; 80053; 84484; 85025; 87637; 93005; 99283; 99285

== ENCOUNTER → 2025-05-02 20:11 | Outpatient (BNV) | payer BC, SELFPAY | PROVIDERS: Emergency Provider Emergency Medicine; PCP Internal Medicine; Visit Provider Internal Medicine Cardiovascular Disease | DX: R07.89 Other chest pain (principal) | CPT/HCPCS: 93010 ==

== ENCOUNTER → 2025-05-02 20:28 | Outpatient (BNV) | payer BC, SELFPAY | PROVIDERS: PCP Internal Medicine; Visit Provider Radiology Diagnostic Radiology | DX: R52 Pain, unspecified (principal) | CPT/HCPCS: 71046 ==